=== PATIENT | female | born 1955 | race Caucasian/White ===

== ENCOUNTER 2016-01-23 12:22 | Inpatient (IN) | payer OTHER ==
[~2016-01-23] VITALS: Ht 165.1 cm; Wt 46.0 kg
[2016-01-23 12:34] VITALS: BP 126/68; PULSE 92; RESP 24; TEMP 98.6; O2SAT 97
--- NOTE | 2016-01-23 12:50 | PD ---
HPI Chief Complaint: Psychiatric Symptoms Time Seen by Provider: 12:43 Travel History International Travel<30 days: No Contact w/Intl Traveler<30days: No Traveled to known affect area: No History of Present Illness HPI Patient is a 60-year-old female with a history of Seattle's disease brought in by the [facility] on a Winkler [facility]. Per the report her son who also has Seattle' s called police because his mother has been expressing suicidal ideation lately. When they arrived the patient locked the doors and refused to let them in the sun and opened a back door and when they went in she was asking if euthanasia was legal in [place] and if the hospital would give her morphine so she could sleep and "go home to [facility] ". The patient denies any suicide attempts but states that she has been considering suicide or euthanasia as an option when her disease progresses. She is not in any pain and denies any cognitive decline. She denies a history of depression, anxiety, bipolar disorder and schizophrenia. She is a smoker but denies alcohol and illicit drug use. She denies any other medical problems including cardiac or pulmonary disease and has no medical complaints at this time. [facility] Social History Tobacco Use: Yes Allergies-Medications (Allergen,Severity, Reaction): Coded Allergies: No Known Allergies (Unverified , 01/23/16) Reported Meds & Prescriptions Reported Meds & Active Scripts Active Macrobid (Nitrofurantoin Monoh/Nitrofur Macro) 100 Mg Cap 100 Mg PO BID 5 Days Review of Systems Except as stated in HPI: all other systems reviewed are Neg Physical Exam Narrative GENERAL: Well-developed and well-nourished adult female in no acute distress. SKIN: Warm and dry. Good turgor without tenting. HEAD: Normocephalic and atraumatic. EYES: PERRL bilaterally, 5mm. EOMI bilateral. No injection or icterus present. No proptosis. Lids without edema or erythema. ENT: Buccal mucosa pink and moist. Oropharynx free of erythema, tonsillar hypertrophy, masses, swelling, asymmetry and exudates. Uvula midline and airway patent. NECK: Supple, no meningeal signs. Trachea midline, no JVD. No cervical or facial lymphadenopathy. CARDIOVASCULAR: Regular rate and rhythm without murmurs, rubs, clicks or gallops. Radial and posterior tibial pulses 2+ bilaterally. No pedal edema. RESPIRATORY: Clear to auscultation bilaterally with symmetrical rise and fall, no distress or use of accessory muscles. GASTROINTESTINAL: Nontender nondistended, no discoloration. No surgical scars present. Normal bowel sounds all 4 quadrants. No organomegaly. MUSCULOSKELETAL: Patient freely moving all four extremities spontaneously. Extremities without clubbing, cyanosis, or edema. No obvious deformities. NEUROLOGIC: CN II-XII grossly intact. Awake and alert and oriented. Chorea movements of the face, head, shoulders and hips. Discriminate gait. No dystonia. Slightly increased muscle tone without clonus. Bilateral sign present. Normal speech. PSYCHIATRIC: Appropriate mood and affect; insight and judgment normal. Data Data Last Documented VS Vital Signs Date Time Temp Pulse Resp B/P Pulse Ox O2 Delivery O2 Flow Rate FiO2 01/23/16 12:34 98.6 92 24 126/68 97 Orders Complete Blood Count With Diff (01/23/16 12:39) Comprehensive Metabolic Panel (01/23/16 12:39) Urinalysis - C+S If Indicated (01/23/16 12:39) Drug Screen, Random Urine (01/23/16 12:39) Alcohol (Ethanol) (01/23/16 12:39) Salicylates (Aspirin) (01/23/16 12:39) Tylenol (Acetaminophen) (01/23/16 12:39) Psych Screen (01/23/16 12:39) Urine Culture (01/23/16 12:53) Nitrofurantoin Monohyd Macrocr (Macrobid (01/23/16 13:45) Labs Laboratory Tests Test 01/23/16 01/23/16 12:46 12:53 White Blood Count 10.6 TH/MM3 Red Blood Count 4.58 MIL/MM3 Hemoglobin 14.2 GM/DL Hematocrit 42.0 % Mean Corpuscular Volume 91.6 FL Mean Corpuscular Hemoglobin 31.1 PG Mean Corpuscular Hemoglobin 33.9 % Concent Red Cell Distribution Width 13.7 % Platelet Count 393 TH/MM3 Mean Platelet Volume 7.1 FL Neutrophils (%) (Auto) 56.0 % Lymphocytes (%) (Auto) 30.9 % Monocytes (%) (Auto) 6.4 % Eosinophils (%) (Auto) 5.5 % Basophils (%) (Auto) 1.2 % Neutrophils # (Auto) 5.9 TH/MM3 Lymphocytes # (Auto) 3.3 TH/MM3 Monocytes # (Auto) 0.7 TH/MM3 Eosinophils # (Auto) 0.6 TH/MM3 Basophils # (Auto) 0.1 TH/MM3 CBC Comment DIFF FINAL Differential Comment Sodium Level 139 MEQ/L Potassium Level 4.0 MEQ/L Chloride Level 104 MEQ/L Carbon Dioxide Level 28.4 MEQ/L Anion Gap 7 MEQ/L Blood Urea Nitrogen 5 MG/DL Creatinine 0.67 MG/DL Estimat Glomerular Filtration 90 ML/MIN Rate Random Glucose 119 MG/DL Calcium Level 8.6 MG/DL Total Bilirubin 0.6 MG/DL Aspartate Amino Transf 21 U/L (AST/SGOT) Alanine Aminotransferase 35 U/L (ALT/SGPT) Alkaline Phosphatase 68 U/L Total Protein 7.0 GM/DL Albumin 3.8 GM/DL Salicylates Level 3.3 MG/DL Acetaminophen Level LESS THAN 2.0 MCG/ML Ethyl Alcohol Level LESS THAN 3 MG/DL Urine Color LIGHT-YELLOW Urine Turbidity HAZY Urine pH 6.5 Urine Specific Sigourney 1.006 Urine Protein NEG mg/dL Urine Glucose (UA) NEG mg/dL Urine Ketones NEG mg/dL Urine Occult Blood SMALL Urine Nitrite POS Urine Bilirubin NEG Urine Urobilinogen LESS THAN 2.0 MG/DL Urine Leukocyte Esterase LARGE Urine RBC 10 /hpf Urine WBC 177 /hpf Urine WBC Clumps FEW Urine Squamous Epithelial 4 /hpf Cells Urine Bacteria MANY /hpf Microscopic Urinalysis Comment CULTURE INDICATED Urine Opiates Screen NEG Urine Barbiturates Screen NEG Urine Amphetamines Screen NEG Urine Benzodiazepines Screen NEG Urine Cocaine Screen NEG Urine Cannabinoids Screen NEG MDM Medical Decision Making Medical Screen Exam Complete: Yes Emergency Medical Condition: Yes Interpretation(s) Laboratory Tests Test 01/23/16 01/23/16 12:46 12:53 White Blood Count 10.6 TH/MM3 (4.0-11.0) Red Blood Count 4.58 MIL/MM3 (4.00-5.30) Hemoglobin 14.2 GM/DL (11.6-15.3) Hematocrit 42.0 % (35.0-46.0) Mean Corpuscular Volume 91.6 FL (80.0-100.0) Mean Corpuscular Hemoglobin 31.1 PG (27.0-34.0) Mean Corpuscular Hemoglobin 33.9 % Concent (32.0-36.0) Red Cell Distribution Width 13.7 % (11.6-17.2) Platelet Count 393 TH/MM3 (150-450) Mean Platelet Volume 7.1 FL (7.0-11.0) Neutrophils (%) (Auto) 56.0 % (16.0-70.0) Lymphocytes (%) (Auto) 30.9 % (9.0-44.0) Monocytes (%) (Auto) 6.4 % (0.0-8.0) Eosinophils (%) (Auto) 5.5 % (0.0-4.0) Basophils (%) (Auto) 1.2 % (0.0-2.0) Neutrophils # (Auto) 5.9 TH/MM3 (1.8-7.7) Lymphocytes # (Auto) 3.3 TH/MM3 (1.0-4.8) Monocytes # (Auto) 0.7 TH/MM3 (0-0.9) Eosinophils # (Auto) 0.6 TH/MM3 (0-0.4) Basophils # (Auto) 0.1 TH/MM3 (0-0.2) CBC Comment DIFF FINAL Differential Comment Sodium Level 139 MEQ/L (136-145) Potassium Level 4.0 MEQ/L (3.5-5.1) Chloride Level 104 MEQ/L (98-107) Carbon Dioxide Level 28.4 MEQ/L (21.0-32.0) Anion Gap 7 MEQ/L (5-15) Blood Urea Nitrogen 5 MG/DL (7-18) Creatinine 0.67 MG/DL (0.50-1.00) Estimat Glomerular Filtration 90 ML/MIN (>89) Rate Random Glucose 119 MG/DL (74-106) Calcium Level 8.6 MG/DL (8.5-10.1) Total Bilirubin 0.6 MG/DL (0.2-1.0) Aspartate Amino Transf 21 U/L (15-37) (AST/SGOT) Alanine Aminotransferase 35 U/L (10-53) (ALT/SGPT) Alkaline Phosphatase 68 U/L (45-117) Total Protein 7.0 GM/DL (6.4-8.2) Albumin 3.8 GM/DL (3.4-5.0) Salicylates Level 3.3 MG/DL (2.8-20.0) Acetaminophen Level LESS THAN 2.0 MCG/ML (10.0-30.0) Ethyl Alcohol Level LESS THAN 3 MG/DL (0-5) Urine Color LIGHT-YELLOW (YELLW/STRAW) Urine Turbidity HAZY (CLEAR) Urine pH 6.5 (5.0-8.5) Urine Specific [place] 1.006 (1.002-1.035) Urine Protein NEG mg/dL (NEG-TRACE) Urine Glucose (UA) NEG mg/dL (NEG) Urine Ketones NEG mg/dL (NEG) Urine Occult Blood SMALL (NEG) Urine Nitrite POS (NEG) Urine Bilirubin NEG (NEG) Urine Urobilinogen LESS THAN 2.0 MG/DL (LESS THAN 2.0) Urine Leukocyte Esterase LARGE (NEG) Urine RBC 10 /hpf (0-3) Urine WBC 177 /hpf (0-5) Urine WBC Clumps FEW (NONE) Urine Squamous Epithelial 4 /hpf (0-5) Cells Urine Bacteria MANY /hpf (NONE) Microscopic Urinalysis Comment CULTURE INDICATED Urine Opiates Screen NEG (NEG) Urine Barbiturates Screen NEG (NEG) Urine Amphetamines Screen NEG (NEG) Urine Benzodiazepines Screen NEG (NEG) Urine Cocaine Screen NEG (NEG) Urine Cannabinoids Screen NEG (NEG) Differential Diagnosis SI versus depression versus anxiety versus bipolar disorder versus schizophrenia versus substance abuse versus mood disorder versus personality disorder versus adjustment disorder Narrative Course Patient is a 60-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 Patient admits to wanting to seek options for a euthanasia in the future as her diseases progressing and fatal. She denies any acute worsening and she is on any pain. She denies any history of mental illness. She denies any suicide attempts. She is pleasant and answers questions and denies any medical problems at this time. Denies any neurological findings from her Seattle's disease her exam is normal. Ordered labs per protocol. CBC shows a WBC of 10.6 without a neutrophilia or bands. H&H normal. Metabolic panel shows BUN 5, glucose 119. Serum benefit level less than 2, salicylates 3.3, ethanol less than 3. Urinalysis shows positive for nitrites, leukocyte esterase, 10 RBCs, 177 WBCs with clumps and many bacteria. The patient continues to deny any symptoms and her abdominal exam is benign. She is afebrile and nontoxic appearing. First dose of Macrobid given here with a prescription for the remainder. Heart rate when vitals were performed was 92 however on exam was 84 and regular. She has no leukocytosis, is afebrile and nontoxic-appearing and has no systemic complaints no additional workup is needed at this time. Patient is medically cleared to proceed with psych evaluation. 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
[2016-01-23 12:59] LABS: AUTOMATED NEUTROPHIL # 5.9 TH/MM3 (1.8-7.7); BASOPHIL # 0.1 TH/MM3 (0-0.2); BASOPHIL % 1.2 % (0.0-2.0); EOSINOPHIL # 0.6 TH/MM3 (0-0.4); EOSINOPHIL % 5.5 % (0.0-4.0); HEMO FLAGS DIFF FINAL; LYMPH % 30.9 % (9.0-44.0); LYMPHOCYTE # 3.3 TH/MM3 (1.0-4.8); MEAN CELL VOLUME 91.6 FL (80.0-100.0); MEAN CORPUSCULAR HEMOGLOBIN 31.1 PG (27.0-34.0); MEAN CORPUSCULAR HGB CONC 33.9 % (32.0-36.0); MONO % 6.4 % (0.0-8.0); PLATELET COUNT 393 TH/MM3 (150-450); RED BLOOD COUNT 4.58 MIL/MM3 (4.00-5.30); RED CELL DISTRIBUTION WIDTH 13.7 % (11.6-17.2); WHITE BLOOD COUNT 10.6 TH/MM3 (4.0-11.0)
[2016-01-23 13:12] LABS: BACTERIA, URINE MANY /hpf; BLOOD, URINE SMALL (NEG); COMMENT (UR) CULTURE INDICATED; CULTURE IF INDICATED CULTURE INDICATED; GLUCOSE,URINE NEG (NEG); KETONE, URINE NEG (NEG); PH, URINE 6.5 (5.0-8.5); SQUAMOUS EPITHELIAL CELL URINE 4 /hpf (0-5); URINE COLOR LIGHT-YELLOW (YELLW/STRAW)
[2016-01-23 13:14] LABS: NITRITE,URINE POS (NEG)
[2016-01-23 13:20] LABS: ANION GAP 7 MEQ/L (5-15); AST (GOT) 21 U/L (15-37); BICARBONATE 28.4 MEQ/L (21.0-32.0); BLOOD UREA NITROGEN 5 MG/DL (7-18); CHLORIDE 104 MEQ/L (98-107); GLOMERULAR FILTRATION RATE 90 ML/MIN (>89); SODIUM (NA) 139 MEQ/L (136-145)
[2016-01-23 13:23] LABS: ALKALINE PHOSPHATASE 68 U/L (45-117); ALT (GPT) 35 U/L (10-53); TOTAL BILIRUBIN ADULT 0.6 MG/DL (0.2-1.0)
[2016-01-23 13:24] LABS: ACETAMINOPHEN LESS THAN 2.0 MCG/ML (10.0-30.0)
[2016-01-23 13:29] LABS: AMPHETAMINE, URINE NEG (NEG); BARBITURATES, URINE NEG (NEG); COCAINE, URINE NEG (NEG)
[2016-01-23] MEDS ORDERED: MACR100C2 PO (13:33)
[2016-01-23] MEDS ORDERED: NITROFURANTOIN MONOHYD MACROCR 100 MG CAP PO ONE (13:45)
[2016-01-23 17:30] VITALS: BP 129/75; PULSE 77; RESP 18; TEMP 97.6; O2SAT 96
[2016-01-24 01:58] VITALS: BP 107/59; PULSE 89; RESP 16
[2016-01-24 06:19] VITALS: BP 115/69; PULSE 70
[2016-01-24] MEDS ORDERED: NITROFURANTOIN MONOHYD MACROCR 100 MG CAP PO ONE (10:15)
[2016-01-24] MEDS ORDERED: ALUMINUM/MAGNESIUM/SIMETH 30 ML CUP PO PRN (10:15)
[2016-01-24] MEDS ORDERED: LORazepam 0.5 MG TAB PO PRN (10:15)
[2016-01-24] MEDS ORDERED: ACETAMINOPHEN 325 MG TAB PO PRN (10:15)
[2016-01-24] MEDS ORDERED: MAGNESIUM HYDROXIDE SUSP 30 ML CUP PO PRN (10:15)
[2016-01-24] MEDS ORDERED: LORazepam 2 MG/ML VIAL IM PRN ×2 (10:15)
--- NOTE | 2016-01-24 10:30 | HHI.HP ---
Provisional Diagnosis Admission Date Republic I. Major depressive disorder, single episode, without psychotic features versus medical induced mood disorder Republic II. Deferred [place] III. Eugenie disease Republic IV. Family conflicts Republic V. 40 Certification of Person's Competence To Provide Express and Informed Consent I have personally examined Rosa Garica , a person being served at [facility] on, Jan 24, 2016 10:11. Express and informed consent means consent voluntarily given in writing, by a competent person, after sufficient explanation and disclosure of the subject matter involved to enable the person to make a knowing and willful decision without any element of force, fraud, deceit, duress, or other form of constraint or coercion. This person is 18 years of age or older, is not now known to be incompetent to consent to treatment with a guardian advocate, and does not have a health care surrogate or proxy currently making medical treatment decisions. I have found this person to be one of the following: [] Competent to provide express and informed consent, as defined above, for voluntary admission to this facility and is competent to provide express and informed consent for treatment. He/she has the consistent capacity to make well reasoned, willful, and knowing decisions concerning his or her medical or mental health treatment. The person fully and consistently understands the purpose of the admission for examination/placement and is fully capable of personally exercising all rights assured [place] [] Incompetent to provide express and informed consent to voluntary admission, and this is incompetent to provide express and informed consent to treatment. The person must be transferred to involuntary status and a petition for a guardian advocate filed with the Circuit Court. [X] Refusing to provide express and informed consent to voluntary admission but is competent to provide express and informed consent for treatment. The person must be discharged or transferred to involuntary status. Form shall be completed within 24 hours of a person's arrival at the receiving facility and filed in the clinical record of each person: 1. Admitted on a voluntary basis 2. Permitted to provide express and informed consent to his/her own treatment 3. Allowed to transfer from involuntary to voluntary status 4. Prior to permitting a person to consent to his or her own treatment after having been previously found incompetent to consent to treatment. History of Present Illness Capacity: Has Capacity HPI The patient is a 60-year-old woman, domicile with her son, unemployed , disabled, without any previous psychiatric history, no previous suicidal attempts, medical history of Jackson's disease [facility] on a Winkler act. Per the report her son who also has Jackson's called police because his mother has been expressing suicidal ideation lately. When they arrived the patient locked the doors and refused to let them in the sun and opened a back door and when they went in she was asking if euthanasia was legal in [place] and if the hospital would give her morphine so she could sleep and "go home to [facility] ". As per ER notes, The patient denies any suicide attempts but states that she has been considering suicide or euthanasia as an option when her disease progresses. Chart was reviewed, case discussed with ER medical staff, no collateral information available, patient was seen and evaluated in the [facility]. On evaluation patient states that she doesn't need to be here, she is states that the reason she was brought to the hospital is because her son doesn't want to pay the rent and wants to get rid of her. Patient denies depressive symptoms, she denies anhedonia, she denies hopelessness, helplessness, she denies suicidal or homicidal ideation. However , she does states that soon or later as per Jackson's disease is deteriorated her health she is going to look for options to end her life in a painless manner, but she is now planning to commit suicide. 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 Patient denies past or current austin, denies anxiety, denies perceptual disturbances, such as visual and auditory hallucinations. Patient is fully oriented 3, no gross cognitive impairment observed. Review of Systems Constitutional: DENIES: Diaphoretic episodes, Fatigue, Fever, Weight gain, Weight loss, Chills, Dizziness, Change in appetite, Night Sweats Eyes: DENIES: Blurred vision, Diplopia, Eye inflammation, Eye pain, Vision loss , Photosensitivity, Double Vision Ears, nose, mouth, throat: DENIES: Tinnitus, Hearing loss, Vertigo, Nasal discharge, Oral lesions, Throat pain, Hoarseness, Ear Pain, Running Nose, Epistaxis, Sinus Pain, Toothache, Odynophagia Respiratory: DENIES: Apneas, Cough, Snoring, Wheezing, Hemoptysis, Sputum production, Shortness of breath Cardiovascular: DENIES: Chest pain, Palpitations, Syncope, Dyspnea on Exertion , PND, Lower Extremity Edema, Orthopnea, Claudication Gastrointestinal: DENIES: Abdominal pain, Black stools, Bloody stools, Constipation, Diarrhea, Nausea, Vomiting, Difficulty Swallowing, Anorexia Genitourinary: DENIES: Abnormal vaginal bleeding, Dysmenorrhea, Dyspareunia, Sexual dysfunction, Urinary frequency, Urinary incontinence, Urgency, Hematuria , Dysuria, Nocturia, Vaginal discharge Musculoskeletal: DENIES: Joint pain, Muscle aches, Stiffness, Joint Swelling, Back pain, Neck pain Integumentary: DENIES: Abnormal pigmentation, Pruritus, Rash, Nail changes, Breast masses, Breast skin changes, Nipple discharge Immunologic/allergic: DENIES: Eczema, Urticaria Psychiatric: DENIES: Anxiety, Confusion, Mood changes, Depression, Hallucinations, Agitation, Suicidal Ideation, Homicidal Ideation, Delusions Other Neurology: Jackson chorea observed, with involuntary movement, lack of coordination and unsteady gait observed. Past Psych History Violence risk - self (6 mos) Elevated Substance Abuse History Drugs/Alcohol past 12 months She denies Past Family Social History Coded Allergies: No Known Allergies (Unverified , 01/23/16) Active Scripts Nitrofurantoin Monohydrate Macrocrystals (Macrobid)100 Mg [id number] Mg PO BID 5 Days Ref 0 Prov:Kaley Dunne MD 01/23/16 Current Medications Medications (Trade) Dose Ordered Sig/Cecelia Route Start Time Stop Time Status Last Admin (Macrobid) 100 mg ONCE ONCE PO 01/24/16 10:15 01/24/16 10:16 (Ativan) 1 mg Q6H PRN PO 01/24/16 10:15 UNV (Ativan Inj) 1 mg Q6H PRN IM 01/24/16 10:15 UNV (Ativan) 0.5 mg Q12H PRN PO 01/24/16 10:15 UNV (Ativan Inj) 0.5 mg Q12H PRN IM 01/24/16 10:15 UNV (Tylenol) 650 mg Q4H PRN PO 01/24/16 10:15 UNV (Milk Of Magnesia Liq) 30 ml DAILY PRN PO 01/24/16 10:15 UNV (Mag-Al Plus Susp Liq) 30 ml Q6H PRN PO 01/24/16 10:15 UNV (Habitrol 21 Mg Patch.24 Hr) 1 patch DAILY T-DERMAL 01/25/16 09:00 UNV Family History Her father, 2 of her siblings, her 2 kids have Eugenie disease Social History Patient was born and raised in [place], she lives with her son, she is single , unemployed, has been living in [place] for 8 years Physical Exam Vital Signs Vital Signs Date Time Temp Pulse Resp B/P Pulse Ox O2 Delivery O2 Flow Rate FiO2 01/24/16 06:19 70 115/69 01/24/16 01:58 16 01/23/16 17:30 97.6 96 Room Air Mental Status Examination Appearance woman, skinny, who appears her stated age, she is cooperative, a little bit irritable, uncoordinated movement, chorea, unsteady gait observed Speech: Slow, Stuttering Orientation: x3 Memory: Unremarkable Thought Process: Logical Thought Content: Unremarkable Hallucination Type: None Attention and Concentration: Good Suicidal Ideation: No Previous Suicide Attempts: No Homicidal Ideation: No Previous Homicide Attempts: No Insight: Fair Judgement: WNL Affect: Irritable Mood: Angry Motor Activity: Abnormal gait-specify (unsteady gait) Problem List: (1) Major depressive disorder Assessment & Plan: On evaluation patient is irritable, she denies suicidal ideation, she denies depressive symptoms, denies austin and perceptual disturbances. However, Winkler act documentation shows that her kids has been very concerned because patient has been expressing suicidal ideation. On evaluation today, even though she doesn't express suicidal ideation, she does report the desire of ending her life "in a painless manner"as her physical condition is deteriorating due to Jackson disease. On the evaluation no gross cognitive impairment or gabriela psychosis is observed. Neuropsychiatric symptoms are very well-known consequences of Jackson disease, but this does not seem to be the case in this patient. I think that the patient has an existential SI due to her severe and debilitating medical condition and not due specifically to depression. She poses a very high risk for suicidality. Collateral information from her kids and more longitudinal observation is crucial in order to complete the psychiatric assessment and and completed the picture. Meanwhile, due to her elevated risk for suicidality, patient needs psychiatric admission. ICD Code: F32.9 Assessment & Plan Estimated LOS: days Problem Qualifiers (1) Major depressive disorder: Ed Pena MD Jan 24, 2016 10:30
[2016-01-24 11:30] VITALS: BP 117/91; PULSE 84; RESP 20; TEMP 96.7
[2016-01-24 18:54] VITALS: BP 123/73; PULSE 72; RESP 18; TEMP 98.4; O2SAT 99
[2016-01-24] MEDS ORDERED: QUEtiapine FUMARATE 25 MG TAB PO SCH (21:00)
[2016-01-25 05:47] VITALS: BP 103/63; PULSE 64; RESP 16; TEMP 98.4; O2SAT 97
[2016-01-25] MEDS: NICOTINE 21 MG/24 HR PATCH T-DERMAL SCH (09:00)
[2016-01-25] MEDS: QUEtiapine FUMARATE 25 MG TAB PO SCH ×2 (09:46→13:26)
[2016-01-25 10:01] LABS: HEMOGLOBIN A1a 1.1 %; HEMOGLOBIN A1b 1.3 %; HEMOGLOBIN Ao 86.5 %; HEMOGLOBIN LA1C 1.9 %; HEMOGLOBIN P3 3.4 %
[2016-01-25 10:11] LABS: ANION GAP 10 MEQ/L (5-15); BICARBONATE 28.6 MEQ/L (21.0-32.0); BLOOD UREA NITROGEN 9 MG/DL (7-18); CHLORIDE 98 MEQ/L (98-107); GLOMERULAR FILTRATION RATE 73 ML/MIN (>89); HDL CHOLESTEROL 90.9 MG/DL (40.0-60.0); LDL CHOLESTEROL 80 MG/DL (0-99); POTASSIUM 3.8 MEQ/L (3.5-5.1); SODIUM (NA) 137 MEQ/L (136-145)
--- NOTE | 2016-01-25 11:11 | PD.CONS ---
Provisional Diagnosis Admission Date Jan 24, 2016 at 10:11 [place] I. Major depressive disorder, single episode, without psychotic features versus medical induced mood disorder [place] II. Deferred [place] III. Aspermont disease [place] IV. Family conflicts [place] V. 40 History of Present Illness Service Psychiatry Consult Requested By Primary Care Physician No Primary Care Physician HPI The patient is a 60-year-old woman, domicile with her son, unemployed , disabled, without any previous psychiatric history, no previous suicidal attempts, medical history of Eugenie's disease brought [facility] by [facility] on a Winkler act. Per the report her son who also has Aspermont's called police because his mother has been expressing suicidal ideation lately. When they arrived the patient locked the doors and refused to let them in the sun and opened a back door and when they went in she was asking if euthanasia was legal in [place] and if the hospital would give her morphine so she could sleep and "go home to [facility] ". As per ER notes, The patient denies any suicide attempts but states that she has been considering suicide or euthanasia as an option when her disease progresses. Chart was reviewed, case discussed with ER medical staff, no collateral information available, patient was seen and evaluated in the [facility]. On evaluation patient states that she doesn't need to be here, she is states that the reason she was brought to the hospital is because her son doesn't want to pay the rent and wants to get rid of her. Patient denies depressive symptoms, she denies anhedonia, she denies hopelessness, helplessness, she denies suicidal or homicidal ideation. However , she does states that soon or later as per Aspermont's disease is deteriorated her health she is going to look for options to end her life in a painless manner, but she is now planning to commit suicide. 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 Patient denies past or current [place], denies anxiety, denies perceptual disturbances, such as visual and auditory hallucinations. Patient is fully oriented 3, no gross cognitive impairment observed. 01/25/16 Above note dictated by Dr. Calderon review noted and agreed with. 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 Calderon to Dr. vera nurse service. Patient chart reviewed and patient seen with nurse eye on unit. Dr. ogden his sign first opinion petition supporting Winkler act. I agree. Patient meets criteria for involuntary psychiatric hospitalization under the Winkler act thus I will cosign second opinion petition supporting Winkler act Past Family Social History Coded Allergies: No Known Allergies (Unverified , 01/23/16) Active Scripts Nitrofurantoin Monohydrate Macrocrystals (Macrobid)100 Mg [id number] Mg PO BID 5 Days Ref 0 Prov:Kaley Dunne MD 01/23/16 Current Medications Medications (Trade) Dose Ordered Sig/Cecelia Route Start Time Stop Time Status Last Admin (Ativan) 1 mg Q6H PRN PO 01/24/16 10:15 (Ativan Inj) 1 mg Q6H PRN IM 01/24/16 10:15 (Ativan) 0.5 mg Q12H PRN PO 01/24/16 10:15 (Ativan Inj) 0.5 mg Q12H PRN IM 01/24/16 10:15 (Tylenol) 650 mg Q4H PRN PO 01/24/16 10:15 (Milk Of Magnesia Liq) 30 ml DAILY PRN PO 01/24/16 10:15 (Mag-Al Plus Susp Liq) 30 ml Q6H PRN PO 01/24/16 10:15 (Habitrol 21 Mg Patch.24 Hr) 1 patch DAILY T-DERMAL 01/25/16 09:00 01/25/16 09:00 (SEROquel) 25 mg BID@09,12 PO 01/25/16 09:00 01/25/16 09:46 (SEROquel) 100 mg HS PO 01/25/16 21:00 Physical Exam Vital Signs Vital Signs Date Time Temp Pulse Resp B/P Pulse Ox O2 Delivery O2 Flow Rate FiO2 01/25/16 05:47 98.4 64 16 103/63 97 01/23/16 17:30 Room Air Mental Status Examination Alert irritable paranoid thin slender white female with significant chorea type movements both upper extremities upper torso head and neck guarded with me Appearance Somewhat disheveled obvious Aspermont's chorea type movements noted Speech: Slow, Stuttering Orientation: x3 Memory: Unremarkable Thought Process: Logical Thought Content: Unremarkable Language Fair Fund of Knowledge Fair Hallucination Type: None Attention and Concentration: Good Suicidal Ideation: No (denies at this time) Previous Suicide Attempts: No Homicidal Ideation: No Previous Homicide Attempts: No Insight: Poor Judgement: WNL (fair) Affect: Irritable Mood: Angry Motor Activity: Abnormal gait-specify (unsteady gait) Problem List: (1) Major depressive disorder ICD Code: F32.9 Assessment & Plan Estimated LOS: days Problem Qualifiers (1) Major depressive disorder: Leonel Monroy MD Jan 25, 2016 11:11
--- NOTE | 2016-01-25 16:42 | HHI.PYPN ---
Subjective Remarks Patient seen, chart reviewed, case discussed with staff Patient is taking her Seroquel today. She reports she finds it calming and she reports she likes it and will continue to take it. Patient presently is continuing to talk to me about suicidal thoughts. She is talking about ordering poisonous herbs from the Internet after she is discharged ; for example she mentioned catnip and dandelion roots which she believes she can order online. This train of thought, which she is continuing in even when she reports feeling better today, is worrisome. Daughter called and gave report of mom being aggressive and overwhelmed at home. Daughter feels mom would do better if placed in assisted living. Mom also reports she does not feel she should return to the family home. Patient continues to deny depression, Says she wants to kill herself as part of a desire to move on in a positive fashion. Review of Systems Neurologic: COMPLAINS OF: Tremor Psychiatric: COMPLAINS OF: Anxiety, Confusion, Mood changes, Depression, Suicidal Ideation Other otherwise 10 point ROS is negative Objective Alert: Yes [place]: Person, Place, Situation Mood: Agitated, Anxious, Depressed Affect: Labile Memory Intact: Immediate Hallucinations: Other (patient denies) Delusions: Yes Delusion Type: Other Suicidal: Ideation (prominent wishes) Homicidal: Ideation (denies) Insight/Judgement odd views about and dying Labs Test 01/25/16 08:41 Sodium Level 137 MEQ/L Potassium Level 3.8 MEQ/L Chloride Level 98 MEQ/L Carbon Dioxide Level 28.6 MEQ/L Anion Gap 10 MEQ/L Blood Urea Nitrogen 9 MG/DL Creatinine 0.81 MG/DL Estimat Glomerular Filtration 73 ML/MIN Rate Random Glucose 129 MG/DL Hemoglobin A1c 5.1 % Calcium Level 9.2 MG/DL Triglycerides Level 113 MG/DL Cholesterol Level 193 MG/DL LDL Cholesterol 80 MG/DL HDL Cholesterol 90.9 MG/DL Cholesterol/HDL Ratio 2.12 RATIO Date/Time Procedure Status Source Growth 01/23/16 12:53 Urine Culture - Final Complete Urine Clean Catch Escherichia Coli Vitals/IOs Vital Signs Date Time Temp Pulse Resp B/P Pulse Ox O2 Delivery O2 Flow Rate FiO2 01/25/16 05:47 98.4 64 16 103/63 97 01/23/16 17:30 Room Air Problem List: (1) Major depressive disorder, recurrent, severe with psychotic features Assessment & Plan: I believe this patients strong wish is a strong indication of severe hopelessness and I consider this a psychotic feature. In addition I consider her thoughts about dying odd and fundamentally psychotic. I believe neuroleptic treatment is indicated and I am happy to say she feels Seroquel is relieving what she refers to as her anxiety. We will continue with this and raise this as needed. Augmenting with antidepressants as patient improves and becomes more accepting of medications. ICD Code: F33.3 Assessment & Plan Estimated LOS: Philly Holliday MD Jan 25, 2016 16:42
[2016-01-25 20:16] VITALS: BP 108/75; PULSE 88; RESP 16; TEMP 97.6; O2SAT 98
[2016-01-25] MEDS: QUEtiapine FUMARATE 100 MG TAB PO SCH (20:45)
[2016-01-25] MEDS: LORazepam 1 MG TAB PO PRN (22:16)
[2016-01-26 06:11] VITALS: BP 91/74; PULSE 72; RESP 18; TEMP 97.2; O2SAT 96
[2016-01-26] MEDS: NICOTINE 21 MG/24 HR PATCH T-DERMAL SCH (09:00)
[2016-01-26] MEDS: QUEtiapine FUMARATE 25 MG TAB PO SCH ×2 (09:18→12:11)
--- NOTE | 2016-01-26 14:45 | HHI.PYPN ---
Subjective Remarks Patient seen, chart reviewed, case discussed with staff Patient reports she is much better on the Seroqeul. She is also reporting that her daughter wants her back home to live with her, however the phone number she gave me is a non working number. Furthermore, when I said that social work would have to speak to her daughter and make sure it is a safe discharge she suddenly got violently angry and started talking about killing herself again.. Suggesting problematic lability and a worrisome low frustration tolerance. Patient has been isolating in bed much of the day. Does not complain of medication side effects. Review of Systems Psychiatric: COMPLAINS OF: Anxiety, Confusion, Mood changes, Depression, Agitation, Suicidal Ideation Other otherwise 10 point ROS is negative Objective Alert: Yes [place]: Person, Place, Situation Mood: Agitated, Anxious, Depressed Affect: Labile Memory Intact: Immediate Hallucinations: Other (patient denies) Delusions: Yes Delusion Type: Other Suicidal: Ideation (continues) Homicidal: Ideation (denies) Insight/Judgement poor Labs Date/Time Procedure Status Source Growth 01/23/16 12:53 Urine Culture - Final Complete Urine Clean Catch Escherichia Coli Vitals/IOs Vital Signs Date Time Temp Pulse Resp B/P Pulse Ox O2 Delivery O2 Flow Rate FiO2 01/26/16 06:11 97.2 72 18 91/74 96 01/23/16 17:30 Room Air Problem List: (1) Major depressive disorder, recurrent, severe with psychotic features Assessment & Plan: patient is still very unstable. I have not spoken to her daughter to verify that Rosa does have a place to go home to. Will have social work look into this. There is improvement with the Seroquel, however the patient is not yet stable yet. Will attempt to improve stability, however I am concerned that patient is sleep on Seroquel (ie staying in room in bed) and will wait to increase, and or consider other meds in daytime. ICD Code: F33.3 Assessment & Plan Estimated LOS: Philly Cardenas MD Jan 26, 2016 14:45
[2016-01-26 19:43] VITALS: BP 108/67; PULSE 84; RESP 17; TEMP 97.1; O2SAT 97
[2016-01-26] MEDS: QUEtiapine FUMARATE 100 MG TAB PO SCH (21:35)
[2016-01-27] MEDS: LORazepam 1 MG TAB PO PRN ×2 (02:14→20:39)
[2016-01-27 05:57] VITALS: BP 104/64; PULSE 71; RESP 20; TEMP 97.3; O2SAT 100
[2016-01-27] MEDS: QUEtiapine FUMARATE 25 MG TAB PO SCH ×2 (09:00→11:55)
[2016-01-27] MEDS: NICOTINE 21 MG/24 HR PATCH T-DERMAL SCH (09:00)
--- NOTE | 2016-01-27 14:24 | HHI.PYPN ---
Subjective Remarks Patient seen, chart reviewed, case discussed with staff. Patient seen on both 2600 and 2700 today. Patient has been demanding immediate release, but has given me a phone number which she reports is that of her daughter and which no one answers. In addition she continues to threaten to kill herself if things do not go her way. Patient was trying to escape the Unit. She is psychotic and talking about legal examiner and people who want her to come live with them. Review of Systems Neurologic: COMPLAINS OF: Tremor, Poor Balance Psychiatric: COMPLAINS OF: Anxiety, Confusion, Mood changes, Depression, Agitation, Suicidal Ideation, Delusions Other otherwise 10 point ROS is negative Objective Alert: Yes [place]: Person, Place, Situation Mood: Agitated, Anxious, Depressed Affect: Labile Memory Intact: Immediate Hallucinations: Other (patient denies) Delusions: Yes Delusion Type: Other Suicidal: Ideation (continues) Homicidal: Ideation (denies) Insight/Judgement poor Labs Date/Time Procedure Status Source Growth 01/23/16 12:53 Urine Culture - Final Complete Urine Clean Catch Escherichia Coli Vitals/IOs Vital Signs Date Time Temp Pulse Resp B/P Pulse Ox O2 Delivery O2 Flow Rate FiO2 01/27/16 05:57 97.3 71 20 104/64 100 01/23/16 17:30 Room Air Problem List: (1) Major depressive disorder, recurrent, severe with psychotic features Assessment & Plan: The patient is expressing more psychotic feature than were originally noticed. In addition she is now refusing medication and insisting on leaving the hospital. It appears likely that she needs to have a Guardian Advocate appointed to approve medications, and she may need some ETOs if her behavioral dyscontrol continues. She has been transferred to the 2700 Unit so she can be observed in the Camera rooms. ICD Code: F33.3 Assessment & Plan Estimated LOS: Philly Holliday MD Jan 27, 2016 14:24
[2016-01-27] MEDS: QUEtiapine FUMARATE 100 MG TAB PO SCH (20:35)
[2016-01-28 06:06] VITALS: BP 115/78; PULSE 63; RESP 16; TEMP 97.2; O2SAT 98
[2016-01-28] MEDS: QUEtiapine FUMARATE 25 MG TAB PO SCH ×2 (08:52→11:33)
[2016-01-28] MEDS: NICOTINE 21 MG/24 HR PATCH T-DERMAL SCH (08:52)
--- NOTE | 2016-01-28 09:36 | HHI.PYPN ---
Subjective Remarks I am assuming care of patient from Dr. Holliday. Patient seen and examined with counselor Fatoumata. Chart reviewed. Case discussed with nursing staff. Patient was apparently transferred from the 2600 to the 2700 unit because she became agitated and threw food at staff. Behavior has been under better control since transferred to the 2700 unit. On my examination today, the patient presents as intensely dysphoric and paranoid. She is impulsive with and seems to exhibit impaired executive function. She says "I don't need to be here. I plan to get the claim inspector of this place involved. You're forcing me onto drugs. I'll place is going to be closed down, sweetie. You stole me from my home. Get a heart. Get a heart. Florina Esquivel." She says she wants to be discharged, and she will go home and "let go" of her life. She says the Seroquel, "turns me into la -la," and I note she has stopped taking it. Spoke with patient's son, Landon Hyman, over the phone [phone]: He reports pt has been symptomatic from HD for 5-10 years but has been steadily declining in the last 2-3 years. He notes that she has had "phases" of paranoia and aggressive behavior in the past. She thought her water was poisoned at one point and refused to shower, he says. He notes that she has made prior threats of suicide but has never acted on a suicide plan. He notes she often refuses medications and does not like doctors or hospitals. He needs to talk it over with his sister, but he is thinking pt may need placement. He is eldest child and pt is reportedly unmarried, and he agrees to act as HCS/GA. He thanks me for the call. Also tried to call daughter, Georgia Hyman at [phone], no answer. Review of Systems ROS Limitations: Uncooperative, Poor Historian Other No reported somatic complaints. Objective Alert: Yes [place]: Person, Place Mood: Agitated, Angry, Anxious Affect: Restricted (dysphoric) Memory Intact: Comment (Perhaps mild impairment on clinical exam but not formally assessed.) Hallucinations: Other (No AVH) Delusions: Yes Delusion Type: Paranoid Suicidal: Ideation (Ongoing SI) Homicidal: Ideation (No HI) Insight/Judgement Poor Remarks Chorea evident. Speech wnl for rate, tone, volume. Thought process perseverative. Labs Date/Time Procedure Status Source Growth 01/23/16 12:53 Urine Culture - Final Complete Urine Clean Catch Escherichia Coli Labs reviewed. CBC, CMP, and toxicology results reviewed. UA and culture results reviewed. I note patient has not been continued on Macrobid tx for UTI. 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 There may also be a component of affective disorder, but this is perhaps secondary to the HD as well. I will replace her Seroquel with Zyprexa PO/IM given nonadherence with Seroquel. I will consult PT and initiate fall precautions. Consult to neurology to assess status of patient's HD. Resume Macrobid x 7 days for treatment of allison-sensitive E. coli UTI. Transfer to 2500 unit when a bed is available; d/w Dr. Monroy. Utilize [facility]. Continue other medications and care as ordered. 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
[2016-01-28] MEDS ORDERED: OLANZapine IM 10 MG VIAL IM PRN (11:45)
[2016-01-28] MEDS: NITROFURANTOIN MONOHYD MACROCR 100 MG CAP PO SCH ×3 (12:22→17:11)
[2016-01-28 20:22] VITALS: BP 92/52; PULSE 93; RESP 18; TEMP 97.4; O2SAT 95
[2016-01-28] MEDS ORDERED: OLANZapine ODT 5 MG TAB PO SCH (21:00)
--- NOTE | 2016-01-28 23:45 | MB ---
cc: JOE TAN DATE OF CONSULTATION 01/28/2016 REASON FOR CONSULTATION Patient with history of Doña Ana disease and the question is any medications that may be of benefit and the admitting marine consultant wants to inquire whether the patient has a cortical dementia of Doña Ana's disease. HISTORY OF PRESENT ILLNESS I went to see the patient in the Psychiatry Unit. I met with the patient and she was in the lobby and she was asked by the nurse to go back to her room. She was evidently with choreiform movements involving the whole body. However, the patient denied that she needs to see a neurologist, "I do not want to see a neurologist. I know my diagnosis and all my family from my mother's side had been diagnosed with Doña Ana's." I explained to the patient why I am consulted and why I am seeing her. She declined taking any medication and she did not want to be examined and she refused evaluation and assessment. I let the nurse know about the situation and the nurse wanted to know about the capacity of the patient to make decisions. My answer is that this needs further evaluation through mental status assessment and cooperative test that is usually done in an outpatient setting and also can be done in inpatient setting by a neurobehavioral expert. I informed the nurse that of further assistance is needed and the patient is agreeable to being reevaluated, I would be more happy to see her again. MD HANNAH Melara/YANIRA /10:52 PM /11:39 PM JENNY
[2016-01-29] MEDS: NITROFURANTOIN MONOHYD MACROCR 100 MG CAP PO SCH ×2 (09:00→17:19)
[2016-01-29] MEDS: REMOVE OLD NICODERM (NICOTINE) PATCH TD SCH (09:00)
[2016-01-29] MEDS: NICOTINE 21 MG/24 HR PATCH T-DERMAL SCH (09:00)
--- NOTE | 2016-01-29 21:17 | HHI.PYPN ---
Subjective Remarks Pt seen and discussed with staff. She has been agitated and aggressive with staff.. She received Ativan IM x1 due to aggression. She states that the FBI is waiting upstairs to arrest support staff. Interview cut short due to escalating agitation. No SI/HI. Review of Systems Psychiatric: COMPLAINS OF: Agitation, Delusions Objective Alert: Yes [place]: Person, Place Mood: Agitated, Angry, Anxious Affect: Restricted (dysphoric) Memory Intact: Comment (Perhaps mild impairment on clinical exam but not formally assessed.) Hallucinations: Other (No AVH) Delusions: Yes Delusion Type: Paranoid Suicidal: Ideation (Ongoing SI) Homicidal: Ideation (No HI) Insight/Judgement poor Vitals/IOs Vital Signs Date Time Temp Pulse Resp B/P Pulse Ox O2 Delivery O2 Flow Rate FiO2 01/28/16 20:22 97.4 93 18 92/52 95 Intake and Output 01/28/16 01/28/16 01/29/16 08:00 16:00 00:00 Intake Total 1080 ml Balance 1080 ml Problem List: (1) Eugenie disease ICD Code: G10 (2) Dementia ICD Code: F03.90 Assessment & Plan Continue current tx plan. Estimated LOS: days Request HC Surrog/Guard Advoc?: Yes Problem Qualifiers (1) Dementia: Qualified Code: F02.81 - Dementia associated with other underlying disease with behavioral disturbance Angela Chiu MD Jan 29, 2016 21:17
[2016-01-30] MEDS: REMOVE OLD NICODERM (NICOTINE) PATCH TD SCH (09:00)
[2016-01-30] MEDS: NICOTINE 21 MG/24 HR PATCH T-DERMAL SCH (09:00)
[2016-01-30] MEDS: NITROFURANTOIN MONOHYD MACROCR 100 MG CAP PO SCH ×2 (09:00→18:00)
[2016-01-30 19:31] VITALS: BP 137/57; PULSE 80; RESP 17; TEMP 98.1; O2SAT 97
--- NOTE | 2016-01-30 19:38 | HHI.PYPN ---
Subjective Remarks Pt seen and discussed with staff. She continues to refuse medications but has been less agitated and hostile. Today pt has been out of room in dayroom engaging in unit activities at times. No SI/HI Objective Alert: Yes [place]: Person, Place Mood: Anxious Affect: Labile Memory Intact: Comment (mild impairment) Hallucinations: Other (No AVH) Delusions: Yes Delusion Type: Paranoid Suicidal: Ideation (Ongoing SI) Homicidal: Ideation (No HI) Insight/Judgement poor Vitals/IOs Vital Signs Date Time Temp Pulse Resp B/P Pulse Ox O2 Delivery O2 Flow Rate FiO2 01/30/16 19:31 98.1 80 17 137/57 97 Intake and Output 01/29/16 01/29/16 01/30/16 08:00 16:00 00:00 Intake Total 980 ml 720 ml 360 ml Balance 980 ml 720 ml 360 ml Problem List: (1) [place] disease ICD Code: G10 (2) Dementia ICD Code: F03.90 Assessment & Plan Continue current tx plan. Estimated LOS: days Request HC Surrog/Guard Advoc?: Yes Problem Qualifiers (1) Dementia: Qualified Code: F02.81 - Dementia associated with other underlying disease with behavioral disturbance Angela Chiu MD Jan 30, 2016 19:38
[2016-01-31] MEDS: REMOVE OLD NICODERM (NICOTINE) PATCH TD SCH (09:00)
[2016-01-31] MEDS: NICOTINE 21 MG/24 HR PATCH T-DERMAL SCH (09:11)
[2016-01-31] MEDS: NITROFURANTOIN MONOHYD MACROCR 100 MG CAP PO SCH ×2 (09:11→17:22)
--- NOTE | 2016-01-31 15:06 | HHI.PYPN ---
Subjective Remarks Patient check to my care on unit 2500, patient discussed with treatment team today chart review today patient seen on unit. Patient quite angry and paranoid after anxious myself she stormed off saying I don't need a doctor. Will have counselor talk with patient's family about possible use of Zyprexa by mouth or IM Review of Systems Other No somatic complaints noted today Objective Alert: Yes [place]: Person, Place Mood: Anxious Affect: Labile Memory Intact: Comment (mild impairment) Hallucinations: Other (No AVH) Delusions: Yes Delusion Type: Paranoid Suicidal: Ideation (Ongoing SI) Homicidal: Ideation (No HI) Insight/Judgement Very poor Vitals/IOs Vital Signs Date Time Temp Pulse Resp B/P Pulse Ox O2 Delivery O2 Flow Rate FiO2 01/30/16 19:31 98.1 80 17 137/57 97 Intake and Output 01/30/16 01/30/16 01/30/16 07:59 15:59 23:59 Intake Total 0 ml 1440 ml 480 ml Balance 0 ml 1440 ml 480 ml Assessment & Plan Problem List: (1) [place] disease ICD Code: G10 (2) Dementia ICD Code: F03.90 Assessment & Plan Estimated LOS: days patient continues quite paranoid and confused. Will attempt to get permission from family to initiate Zyprexa Discharge Planning To be determined Request HC Surrog/Guard Advoc?: Yes Problem Qualifiers (1) Dementia: Qualified Code: F02.81 - Dementia associated with other underlying disease with behavioral disturbance Leonel Monroy MD Jan 31, 2016 15:06
[2016-01-31 18:37] VITALS: PULSE 76; RESP 18; TEMP 99; O2SAT 97
[2016-01-31] MEDS: OLANZapine ODT 5 MG TAB PO SCH (20:32)
[2016-02-01 06:37] VITALS: BP 100/65; PULSE 60; RESP 18; TEMP 98; O2SAT 99
[2016-02-01] MEDS: NICOTINE 21 MG/24 HR PATCH T-DERMAL SCH (08:49)
[2016-02-01] MEDS: REMOVE OLD NICODERM (NICOTINE) PATCH TD SCH (08:49)
[2016-02-01] MEDS: NITROFURANTOIN MONOHYD MACROCR 100 MG CAP PO SCH ×2 (08:50→17:37)
--- NOTE | 2016-02-01 10:04 | HHI.PYPN ---
Subjective Remarks Attempted to speak with patient in dayroom today she continues angry paranoid refusing to speak with me. Patient remains [place] noncompliant with medications though it appears she did take her Zyprexa at at bedtime last night. For now continue treatment Review of Systems Other No somatic complaints today Objective Alert: Yes [place]: Person, Place Mood: Anxious Affect: Labile Memory Intact: Comment (mild impairment) Hallucinations: Other (No AVH) Delusions: Yes Delusion Type: Paranoid Suicidal: Ideation (Ongoing SI) Homicidal: Ideation (No HI) Insight/Judgement Very poor Vitals/IOs Vital Signs Date Time Temp Pulse Resp B/P Pulse Ox O2 Delivery O2 Flow Rate FiO2 02/01/16 06:37 98.0 60 18 100/65 99 Intake and Output 01/31/16 01/31/16 01/31/16 07:59 15:59 23:59 Intake Total 240 ml 360 ml 580 ml Balance 240 ml 360 ml 580 ml Assessment & Plan Problem List: (1) [place] disease ICD Code: G10 (2) Dementia ICD Code: F03.90 Assessment & Plan Patient continues somewhat confused, psychotic, paranoid, angry and irritable Estimated LOS: days Discharge Planning To be determined Request HC Surrog/Guard Advoc?: Yes Problem Qualifiers (1) Dementia: Qualified Code: F02.81 - Dementia associated with other underlying disease with behavioral disturbance Leonel Monroy MD Feb 01, 2016 10:04
[2016-02-01 20:03] VITALS: BP 114/72; PULSE 75; RESP 18; TEMP 97.8; O2SAT 97
[2016-02-01] MEDS: OLANZapine IM 10 MG VIAL IM PRN (20:26)
[2016-02-01] MEDS: OLANZapine ODT 5 MG TAB PO SCH (21:06)
[2016-02-02] MEDS: REMOVE OLD NICODERM (NICOTINE) PATCH TD SCH (09:00)
[2016-02-02] MEDS: NICOTINE 21 MG/24 HR PATCH T-DERMAL SCH (09:00)
[2016-02-02] MEDS: NITROFURANTOIN MONOHYD MACROCR 100 MG CAP PO SCH ×2 (09:00→18:01)
--- NOTE | 2016-02-02 14:17 | HHI.PYPN ---
Subjective Remarks Patient was seen and reevaluated today in the psychiatric li at bedside, she was calm and cooperative, choreiform movement and restlessness observed, she endorses good mood, says that she is not upset for the hospitalization, she is mostly upset with her kids because they don't believe her. Patient is oriented times person and place. She denies suicidal or homicidal ideation. Review of Systems Other No somatic complaints this moment Objective Alert: Yes [place]: Person, Place, Date Mood: Calm Affect: Euthymic Memory Intact: Comment (mild impairment) Hallucinations: Other (No AVH) Delusions: Yes Delusion Type: Other Suicidal: Ideation (she denies suicidal ideation) Homicidal: Ideation (No HI) Insight/Judgement fair Vitals/IOs Vital Signs Date Time Temp Pulse Resp B/P Pulse Ox O2 Delivery O2 Flow Rate FiO2 02/01/16 20:03 97.8 75 18 114/72 97 Intake and Output 02/01/16 02/01/16 02/02/16 08:00 16:00 00:00 Intake Total 0 ml 600 ml 240 ml Balance 0 ml 600 ml 240 ml Assessment & Plan Problem List: (1) Eugenie disease ICD Code: G10 (2) Dementia Assessment & Plan: On reevaluation today the patient does not present any visible depression, anxiety, [place] or perceptual disturbances. She denies suicidal or homicidal ideation. Patient will continue process of psychiatry hospitalization in order to continue coordinating a safe discharge. No changes in psychotropics. ICD Code: F03.90 Assessment & Plan Estimated LOS: days Request HC Surrog/Guard Advoc?: Yes Problem Qualifiers (1) Dementia: Qualified Code: F02.81 - Dementia associated with other underlying disease with behavioral disturbance Ed Pena MD Feb 02, 2016 14:17
[2016-02-02 19:29] VITALS: BP 98/66; PULSE 73; RESP 18; TEMP 98.5
[2016-02-02] MEDS: OLANZapine ODT 5 MG TAB PO SCH (21:00)
[2016-02-02] MEDS: OLANZapine IM 10 MG VIAL IM PRN (21:23)
[2016-02-03 06:00] VITALS: BP 98/58; PULSE 60; RESP 16; TEMP 97.6; O2SAT 99
[2016-02-03] MEDS: NICOTINE 21 MG/24 HR PATCH T-DERMAL SCH (09:00)
[2016-02-03] MEDS: REMOVE OLD NICODERM (NICOTINE) PATCH TD SCH (09:00)
[2016-02-03] MEDS: NITROFURANTOIN MONOHYD MACROCR 100 MG CAP PO SCH ×2 (09:40→18:10)
--- NOTE | 2016-02-03 10:00 | HHI.PYPN ---
Subjective Remarks Patient seen in [address] with her son and daughter, patient retained by Rooming House Keeper Chloe with daughter to be guardian advocate. Patient continues somewhat labile though did present well and court. She continues to deny a need for physician offer medication. For now continue treatment with increasing the at bedtime Zyprexa to 10 mg Review of Systems Other No somatic complaints today Objective Alert: Yes [place]: Person, Place, Date Mood: Calm Affect: Euthymic Memory Intact: Comment (mild impairment) Hallucinations: Other (No AVH) Delusions: Yes Delusion Type: Other Suicidal: Ideation (she denies suicidal ideation) Homicidal: Ideation (No HI) Insight/Judgement Very poor Vitals/IOs Vital Signs Date Time Temp Pulse Resp B/P Pulse Ox O2 Delivery O2 Flow Rate FiO2 02/03/16 06:00 97.6 60 16 98/58 99 Intake and Output 02/02/16 02/02/16 02/03/16 08:00 16:00 00:00 Intake Total 600 ml 480 ml 360 ml Balance 600 ml 480 ml 360 ml Assessment & Plan Problem List: (1) [place] disease ICD Code: G10 (2) Dementia ICD Code: F03.90 Assessment & Plan Estimated LOS: days patient continues irritable somewhat confused labile was retained by Rooming House Keeper Chloe she medication adjustments about Discharge Planning To be determined Request HC Surrog/Guard Advoc?: Yes Problem Qualifiers (1) Dementia: Qualified Code: F02.81 - Dementia associated with other underlying disease with behavioral disturbance Leonel Monroy MD Feb 03, 2016 10:00
[2016-02-03 19:50] VITALS: BP 105/69; PULSE 63; RESP 16; TEMP 97.5
[2016-02-03] MEDS: OLANZapine ODT 5 MG TAB PO SCH (20:32)
[2016-02-04 06:42] VITALS: BP 103/51; PULSE 58; RESP 16; TEMP 98.6; O2SAT 95
[2016-02-04] MEDS: NICOTINE 21 MG/24 HR PATCH T-DERMAL SCH (09:00)
[2016-02-04] MEDS: REMOVE OLD NICODERM (NICOTINE) PATCH TD SCH (09:00)
[2016-02-04] MEDS: NITROFURANTOIN MONOHYD MACROCR 100 MG CAP PO SCH (09:46)
--- NOTE | 2016-02-04 10:32 | HHI.PYPN ---
Subjective Remarks Patient seen in her room patient in bed. Nurse Ezequiel present also. Patient somewhat calmer today somewhat better eye contact, she was compliant with the medication at bedtime last night. She also stated her children are attempting to find an RESIDENTIAL for her which appeared to be responding to fairly positively. For now continue treatment Review of Systems Other No somatic complaints today Objective Alert: Yes [place]: Person, Place, Date Mood: Calm Affect: Euthymic Memory Intact: Comment (mild impairment) Hallucinations: Other (No AVH) Delusions: Yes Delusion Type: Other Suicidal: Ideation (she denies suicidal ideation) Homicidal: Ideation (No HI) Insight/Judgement Poor Vitals/IOs Vital Signs Date Time Temp Pulse Resp B/P Pulse Ox O2 Delivery O2 Flow Rate FiO2 02/04/16 06:42 98.6 58 16 103/51 95 Intake and Output 02/03/16 02/03/16 02/04/16 08:00 16:00 00:00 Intake Total 1500 ml 360 ml Balance 1500 ml 360 ml Assessment & Plan Problem List: (1) [place]enie disease ICD Code: G10 (2) Dementia ICD Code: F03.90 Assessment & Plan Estimated LOS: days patient continues somewhat psychotic isolating but did show compliance with medication yesterday evening. For now continue treatment Discharge Planning To be determined Request HC Surrog/Guard Advoc?: Yes Problem Qualifiers (1) Dementia: Qualified Code: F02.81 - Dementia associated with other underlying disease with behavioral disturbance Leonel Monroy MD Feb 04, 2016 10:32
[2016-02-04 18:00] VITALS: BP 103/69; PULSE 83; RESP 16; TEMP 98.4; O2SAT 94
[2016-02-04] MEDS: OLANZapine ODT 5 MG TAB PO SCH (21:12)
[2016-02-05 06:07] VITALS: BP 106/70; PULSE 67; RESP 18; TEMP 97.3; O2SAT 95
[2016-02-05] MEDS: NICOTINE 21 MG/24 HR PATCH T-DERMAL SCH (09:00)
[2016-02-05] MEDS: REMOVE OLD NICODERM (NICOTINE) PATCH TD SCH (09:00)
--- NOTE | 2016-02-05 15:56 | HHI.PYPN ---
Subjective Remarks Pt seen and discussed with staff. Pt has been calm and in better behavioral control. No agitation today. Compliant with treatment. Pt reports mood is good and she denies medication side effects. No SI/HI. Objective Alert: Yes [place]: Person, Place, Date Mood: Calm Affect: Euthymic Memory Intact: Comment (mild impairment) Hallucinations: Other (No AVH) Delusions: No Delusion Type: Other Suicidal: Ideation (she denies suicidal ideation) Homicidal: Ideation (No HI) Insight/Judgement Continue current tx plan. Vitals/IOs Vital Signs Date Time Temp Pulse Resp B/P Pulse Ox O2 Delivery O2 Flow Rate FiO2 02/05/16 06:07 97.3 67 18 106/70 95 Intake and Output 02/04/16 02/04/16 02/05/16 08:00 16:00 00:00 Intake Total 360 ml 1080 ml 720 ml Balance 360 ml 1080 ml 720 ml Assessment & Plan Problem List: (1) [place] disease ICD Code: G10 (2) Dementia ICD Code: F03.90 Assessment & Plan Continue current tx plan. Estimated LOS: days Request HC Surrog/Guard Advoc?: Yes Problem Qualifiers (1) Dementia: Qualified Code: F02.81 - Dementia associated with other underlying disease with behavioral disturbance Angela Chiu MD Feb 05, 2016 15:56
[2016-02-05 20:00] VITALS: BP 108/72; PULSE 68; RESP 18; TEMP 97.7; O2SAT 96
[2016-02-05] MEDS: OLANZapine ODT 5 MG TAB PO SCH (22:25)
[2016-02-06 06:00] VITALS: BP 103/63; PULSE 86; RESP 16; TEMP 98.4; O2SAT 97
[2016-02-06] MEDS: NICOTINE 21 MG/24 HR PATCH T-DERMAL SCH (09:00)
[2016-02-06] MEDS: REMOVE OLD NICODERM (NICOTINE) PATCH TD SCH (09:00)
--- NOTE | 2016-02-06 12:25 | HHI.PYPN ---
Subjective Remarks Pt seen and discussed with staff. RN reports that pt attempted to cheek nighttime olanzapine. Pt is irritable today. Hygiene is poor and pt states that she will not bathe anymore. Staff report more labile in mood but no aggression. No SI/HI. Objective Alert: Yes [place]: Person, Place, Date Mood: Other (irritable) Affect: Labile Memory Intact: Comment (mild impairment) Hallucinations: Other (No AVH) Delusions: No Delusion Type: Other Suicidal: Ideation (she denies suicidal ideation) Homicidal: Ideation (No HI) Insight/Judgement poor Vitals/IOs Vital Signs Date Time Temp Pulse Resp B/P Pulse Ox O2 Delivery O2 Flow Rate FiO2 02/06/16 06:00 98.4 86 16 103/63 97 Intake and Output 02/05/16 02/05/16 02/06/16 08:00 16:00 00:00 Intake Total 720 ml 100 ml Balance 720 ml 100 ml Assessment & Plan Problem List: (1) [place] disease ICD Code: G10 (2) Dementia ICD Code: F03.90 Assessment & Plan Continue current tx plan. Estimated LOS: days Request HC Surrog/Guard Advoc?: Yes Problem Qualifiers (1) Dementia: Qualified Code: F02.81 - Dementia associated with other underlying disease with behavioral disturbance Angela Chiu MD Feb 06, 2016 12:25
[2016-02-06 20:33] VITALS: BP 108/69; PULSE 82; RESP 18; TEMP 98.4; O2SAT 98
[2016-02-06] MEDS: OLANZapine ODT 5 MG TAB PO SCH (21:14)
[2016-02-07] MEDS: NICOTINE 21 MG/24 HR PATCH T-DERMAL SCH (08:58)
[2016-02-07] MEDS: REMOVE OLD NICODERM (NICOTINE) PATCH TD SCH (08:59)
--- NOTE | 2016-02-07 15:48 | HHI.PYPN ---
Subjective Remarks Patient discussed with treatment team, after treatment team met with patient's son and daughter, patient seen on unit, patient continues somewhat irritable but calmer and compliant with medications. Family feels she is also improving somewhat, patient continues to be willing to consider [facility] placement continue treatment Review of Systems Other No somatic complaints today Objective Alert: Yes [place]: Person, Place, Date Mood: Other (irritable) Affect: Labile Memory Intact: Comment (mild impairment) Hallucinations: Other (No AVH) Delusions: No Delusion Type: Other Suicidal: Ideation (she denies suicidal ideation) Homicidal: Ideation (No HI) Insight/Judgement Poor Vitals/IOs Vital Signs Date Time Temp Pulse Resp B/P Pulse Ox O2 Delivery O2 Flow Rate FiO2 02/06/16 20:33 98.4 82 18 108/69 98 Intake and Output 02/06/16 02/06/16 02/06/16 07:59 15:59 23:59 Intake Total 1440 ml 960 ml Balance 1440 ml 960 ml Assessment & Plan Problem List: (1) [place] disease ICD Code: G10 (2) Dementia ICD Code: F03.90 Assessment & Plan Estimated LOS: days patient continues somewhat irritable labile, though somewhat softer, compliant medications. For now continue treatment Discharge Planning To Be determined Request HC Surrog/Guard Advoc?: Yes Problem Qualifiers (1) Dementia: Qualified Code: F02.81 - Dementia associated with other underlying disease with behavioral disturbance Leonel Monroy MD Feb 07, 2016 15:48
[2016-02-07 19:25] VITALS: BP 101/70; PULSE 80; RESP 16; TEMP 97.6
[2016-02-07] MEDS: OLANZapine ODT 5 MG TAB PO SCH (20:52)
[2016-02-08 06:22] VITALS: BP 108/60; PULSE 60; RESP 18; TEMP 97.9; O2SAT 97
--- NOTE | 2016-02-08 08:28 | HHI.PYPN ---
Subjective Remarks Patient seen in day room with nurse Nicolette, patient calmer more appropriate with me today the paranoia vigilance and anger have diminished. She is accepting of the fact that her children are looking for an [facility] for her, she is willing to go there willing to go there, patient compliant medications. For now continue treatment Review of Systems Other No somatic complaints today Objective Alert: Yes [place]: Person, Place, Date Mood: Calm, Other (marked decrease in irritability) Affect: Labile (markedly decreased) Memory Intact: Comment (mild impairment) Hallucinations: Other (No AVH) Delusions: No Delusion Type: Other Suicidal: Ideation (she denies suicidal ideation) Homicidal: Ideation (No HI) Insight/Judgement Poor Vitals/IOs Vital Signs Date Time Temp Pulse Resp B/P Pulse Ox O2 Delivery O2 Flow Rate FiO2 02/08/16 06:22 97.9 60 18 108/60 97 Intake and Output 02/07/16 02/07/16 02/08/16 08:00 16:00 00:00 Intake Total 240 ml 720 ml 930 ml Balance 240 ml 720 ml 930 ml Assessment & Plan Problem List: (1) [place] disease ICD Code: G10 (2) Dementia ICD Code: F03.90 Assessment & Plan Estimated LOS: days patient calmer more appropriate focused today, compliant medications. For now continue treatment Discharge Planning To be determined Request HC Surrog/Guard Advoc?: Yes Problem Qualifiers (1) Dementia: Qualified Code: F02.81 - Dementia associated with other underlying disease with behavioral disturbance Leonel Monroy MD Feb 08, 2016 08:28
[2016-02-08] MEDS: NICOTINE 21 MG/24 HR PATCH T-DERMAL SCH (09:00)
[2016-02-08] MEDS: REMOVE OLD NICODERM (NICOTINE) PATCH TD SCH (09:00)
[2016-02-08 19:14] VITALS: BP 119/59; PULSE 75; RESP 18; TEMP 99.2; O2SAT 96
[2016-02-08] MEDS: OLANZapine ODT 5 MG TAB PO SCH (20:55)
[2016-02-09] MEDS: NICOTINE 21 MG/24 HR PATCH T-DERMAL SCH (09:00)
[2016-02-09] MEDS: REMOVE OLD NICODERM (NICOTINE) PATCH TD SCH (09:00)
--- NOTE | 2016-02-09 10:33 | HHI.PYPN ---
Subjective Remarks Patient seen in dayroom with Esperanza, patient continues calm pleasant with me compliant medications continues to be in agreement with [facility] Review of Systems Other No somatic complaints today Objective Alert: Yes [place]: Person, Place, Date Mood: Calm, Other (marked decrease in irritability) Affect: Labile (markedly decreased) Memory Intact: Comment (mild impairment) Hallucinations: Other (No AVH) Delusions: No Delusion Type: Other Suicidal: Ideation (she denies suicidal ideation) Homicidal: Ideation (No HI) Insight/Judgement Poor Vitals/IOs Vital Signs Date Time Temp Pulse Resp B/P Pulse Ox O2 Delivery O2 Flow Rate FiO2 02/08/16 19:14 99.2 75 18 119/59 96 Intake and Output 02/08/16 02/08/16 02/09/16 08:00 16:00 00:00 Intake Total 960 ml 600 ml Balance 960 ml 600 ml Assessment & Plan Problem List: (1) [place] disease ICD Code: G10 (2) Dementia ICD Code: F03.90 Assessment & Plan Estimated LOS: days patient continue somewhat confused though calmer more compliant with medications. Now continue treatment Discharge Planning To be determined Request HC Surrog/Guard Advoc?: Yes Problem Qualifiers (1) Dementia: Qualified Code: F02.81 - Dementia associated with other underlying disease with behavioral disturbance Leonel Monroy MD Feb 09, 2016 10:33
[2016-02-09 18:21] VITALS: BP 111/68; PULSE 71; RESP 18; TEMP 99.4
[2016-02-09] MEDS: OLANZapine ODT 5 MG TAB PO SCH (21:44)
[2016-02-10 06:52] VITALS: BP 106/69; PULSE 60; RESP 18; TEMP 98; O2SAT 97
[2016-02-10] MEDS: REMOVE OLD NICODERM (NICOTINE) PATCH TD SCH (08:34)
[2016-02-10] MEDS: NICOTINE 21 MG/24 HR PATCH T-DERMAL SCH (08:34)
--- NOTE | 2016-02-10 09:07 | HHI.PYPN ---
Subjective Remarks Patient seen in dayroom with floor staff, patient continues calm pleasant with me the marked decrease in the paranoia anger and lability. Compliant medications. For now continue treatment Review of Systems Other No somatic complaints today Objective Alert: Yes [place]: Person, Place, Date Mood: Calm, Other (marked decrease in irritability) Affect: Labile (markedly decreased) Memory Intact: Comment (mild impairment) Hallucinations: Other (No AVH) Delusions: No Delusion Type: Other Suicidal: Ideation (she denies suicidal ideation) Homicidal: Ideation (No HI) Insight/Judgement Poor Vitals/IOs Vital Signs Date Time Temp Pulse Resp B/P Pulse Ox O2 Delivery O2 Flow Rate FiO2 02/10/16 06:52 98.0 60 18 106/69 97 Intake and Output 02/09/16 02/09/16 02/09/16 07:59 15:59 23:59 Intake Total 1200 ml 720 ml Balance 1200 ml 720 ml Assessment & Plan Problem List: (1) [place] disease ICD Code: G10 (2) Dementia ICD Code: F03.90 Assessment & Plan Estimated LOS: days patient continue somewhat confused but calmer with less behavioral outbursts. However at this time the patient will decompensate at a lower level of care or less restrictive setting Discharge Planning To be determined Request HC Surrog/Guard Advoc?: Yes Problem Qualifiers (1) Dementia: Qualified Code: F02.81 - Dementia associated with other underlying disease with behavioral disturbance Leonel Monroy MD Feb 10, 2016 09:07
[2016-02-10 18:00] VITALS: BP 121/70; PULSE 85; RESP 17; TEMP 97.8; O2SAT 95
[2016-02-10] MEDS: OLANZapine ODT 5 MG TAB PO SCH (21:24)
[2016-02-11] MEDS: REMOVE OLD NICODERM (NICOTINE) PATCH TD SCH (09:00)
[2016-02-11] MEDS: NICOTINE 21 MG/24 HR PATCH T-DERMAL SCH (09:00)
--- NOTE | 2016-02-11 13:47 | HHI.PYPN ---
Subjective Remarks She seen in her room with nurse Tasia, patient calm pleasant with me though continues to isolate. Is compliant with medications. No significant behavioral problems. Continues to be willing to go to [facility]. Though at this time she has been refusing to speak with her children, suggesting and anger with them at this placement Review of Systems Other No somatic complaints today Objective Alert: Yes [place]: Person, Place, Date Mood: Calm, Other (marked decrease in irritability) Affect: Labile (markedly decreased) Memory Intact: Comment (mild impairment) Hallucinations: Other (No AVH) Delusions: No Delusion Type: Other Suicidal: Ideation (she denies suicidal ideation) Homicidal: Ideation (No HI) Insight/Judgement Poor Vitals/IOs Vital Signs Date Time Temp Pulse Resp B/P Pulse Ox O2 Delivery O2 Flow Rate FiO2 02/10/16 18:00 97.8 85 17 121/70 95 Intake and Output 02/10/16 02/10/16 02/11/16 08:00 16:00 00:00 Intake Total 0 ml 580 ml Balance 0 ml 580 ml Assessment & Plan Problem List: (1) [place] disease ICD Code: G10 (2) Dementia ICD Code: F03.90 Assessment & Plan Estimated LOS: days patient continues to show increased cooperation with medication and treatment, compliant medications, no appears to be still harboring anger towards children for the referral to an [facility] however at this time patient will decompensate at a low level of care her less restrictive setting Request HC Surrog/Guard Advoc?: Yes Problem Qualifiers (1) Dementia: Qualified Code: F02.81 - Dementia associated with other underlying disease with behavioral disturbance Leonel Monroy MD Feb 11, 2016 13:47
[2016-02-11 18:00] VITALS: BP 107/65; PULSE 75; RESP 20; TEMP 97.7; O2SAT 99
[2016-02-11] MEDS: OLANZapine ODT 5 MG TAB PO SCH (20:42)
[2016-02-12 05:54] VITALS: BP 98/56; PULSE 61; RESP 16; TEMP 98.1; O2SAT 97
[2016-02-12] MEDS: NICOTINE 21 MG/24 HR PATCH T-DERMAL SCH (09:00)
[2016-02-12] MEDS: REMOVE OLD NICODERM (NICOTINE) PATCH TD SCH (09:00)
--- NOTE | 2016-02-12 15:51 | HHI.PYPN ---
Subjective Remarks Pt seen and discussed with staff. No agitation or disruptive behavior. Pt is compliant with care. She is isolative and stays in her room except for meals. No SI/HI. Objective Alert: Yes [place]: Person, Place, Date Mood: Calm, Other (marked decrease in irritability) Affect: Restricted Memory Intact: Comment (mild impairment) Hallucinations: Other (No AVH) Delusions: No Delusion Type: Other (none) Suicidal: Ideation (she denies suicidal ideation) Homicidal: Ideation (No HI) Insight/Judgement limited Vitals/IOs Vital Signs Date Time Temp Pulse Resp B/P Pulse Ox O2 Delivery O2 Flow Rate FiO2 02/12/16 05:54 98.1 61 16 98/56 97 Intake and Output 02/11/16 02/11/16 02/11/16 07:59 15:59 23:59 Intake Total 0 ml 600 ml 840 ml Balance 0 ml 600 ml 840 ml Assessment & Plan Problem List: (1) [place] disease ICD Code: G10 (2) Dementia ICD Code: F03.90 Assessment & Plan Continue current tx plan. Estimated LOS: days Request HC Surrog/Guard Advoc?: Yes Problem Qualifiers (1) Dementia: Qualified Code: F02.81 - Dementia associated with other underlying disease with behavioral disturbance Angela Chiu MD Feb 12, 2016 15:51
[2016-02-12 19:55] VITALS: BP 105/59; PULSE 75; RESP 16; TEMP 98.8; O2SAT 97
[2016-02-12] MEDS: OLANZapine ODT 5 MG TAB PO SCH (20:27)
[2016-02-13 06:44] VITALS: BP 96/54; PULSE 57; RESP 16; TEMP 98.2; O2SAT 97
[2016-02-13] MEDS: REMOVE OLD NICODERM (NICOTINE) PATCH TD SCH (09:00)
[2016-02-13] MEDS: NICOTINE 21 MG/24 HR PATCH T-DERMAL SCH (09:00)
[2016-02-13 19:19] VITALS: BP 113/73; PULSE 79; RESP 16; TEMP 98.9; O2SAT 100
--- NOTE | 2016-02-13 19:54 | HHI.PYPN ---
Subjective Remarks Pt seen and discussed with staff. She has been more irritable and seclusive today. Compliant with medications. No SI/HI. Objective Alert: Yes [place]: Person, Place, Date Mood: Calm, Other (marked decrease in irritability) Affect: Restricted Memory Intact: Comment (mild impairment) Hallucinations: Other (No AVH) Delusions: No Delusion Type: Other (none) Suicidal: Ideation (she denies suicidal ideation) Homicidal: Ideation (No HI) Insight/Judgement poor Vitals/IOs Vital Signs Date Time Temp Pulse Resp B/P Pulse Ox O2 Delivery O2 Flow Rate FiO2 02/13/16 19:19 98.9 79 16 113/73 100 Intake and Output 02/12/16 02/12/16 02/12/16 07:59 15:59 23:59 Intake Total 0 ml 1440 ml 600 ml Balance 0 ml 1440 ml 600 ml Assessment & Plan Problem List: (1) [place]enie disease ICD Code: G10 (2) Dementia ICD Code: F03.90 Assessment & Plan Continue current tx plan. Estimated LOS: days Request HC Surrog/Guard Advoc?: Yes Problem Qualifiers (1) Dementia: Qualified Code: F02.81 - Dementia associated with other underlying disease with behavioral disturbance Angela Chiu MD Feb 13, 2016 19:54
[2016-02-13] MEDS: OLANZapine ODT 5 MG TAB PO SCH (21:27)
[2016-02-14 05:54] VITALS: BP 94/61; PULSE 55; RESP 16; TEMP 97.7; O2SAT 97
[2016-02-14] MEDS: REMOVE OLD NICODERM (NICOTINE) PATCH TD SCH (09:00)
[2016-02-14] MEDS: NICOTINE 21 MG/24 HR PATCH T-DERMAL SCH (09:00)
--- NOTE | 2016-02-14 15:05 | HHI.PYPN ---
Subjective Remarks Patient discussed with treatment team, later seen on unit, continues calm with me though also continues somewhat confused chart review, patient continues to be receptive to [facility] placement though she continues also angry with her children for the decision to do this. Patient compliant with medications, no significant behavioral problems for now continue treatment Review of Systems Other No somatic complaints today Objective Alert: Yes [place]: Person, Place, Date Mood: Calm, Other (marked decrease in irritability) Affect: Restricted Memory Intact: Comment (mild impairment) Hallucinations: Other (No AVH) Delusions: No Delusion Type: Other (none) Suicidal: Ideation (she denies suicidal ideation) Homicidal: Ideation (No HI) Insight/Judgement Poor Vitals/IOs Vital Signs Date Time Temp Pulse Resp B/P Pulse Ox O2 Delivery O2 Flow Rate FiO2 02/14/16 05:54 97.7 55 16 94/61 97 Intake and Output 02/13/16 02/13/16 02/14/16 08:00 16:00 00:00 Intake Total 240 ml 720 ml 960 ml Balance 240 ml 720 ml 960 ml Assessment & Plan Problem List: (1) [place] disease ICD Code: G10 (2) Dementia ICD Code: F03.90 Assessment & Plan Estimated LOS: days patient continue somewhat confused and disoriented, though compliant medications, no significant behavioral problems. Justification for Cont. Inpt. At this time patient with severely decompensated a lower level of care a less restrictive setting Discharge Planning To be determined Request HC Surrog/Guard Advoc?: Yes Problem Qualifiers (1) Dementia: Qualified Code: F02.81 - Dementia associated with other underlying disease with behavioral disturbance Leonel Monroy MD Feb 14, 2016 15:05
[2016-02-14 18:38] VITALS: BP 111/64; PULSE 75; RESP 16; TEMP 99.1; O2SAT 96
[2016-02-14] MEDS: OLANZapine ODT 5 MG TAB PO SCH (20:18)
[2016-02-14 20:29] VITALS: BP 111/64; PULSE 75; RESP 16; TEMP 99.1; O2SAT 96
[2016-02-15 05:14] VITALS: BP 99/62; PULSE 62; RESP 16; TEMP 97.8; O2SAT 96
[2016-02-15] MEDS: REMOVE OLD NICODERM (NICOTINE) PATCH TD SCH (08:37)
[2016-02-15] MEDS: NICOTINE 21 MG/24 HR PATCH T-DERMAL SCH (08:37)
--- NOTE | 2016-02-15 09:19 | HHI.PYPN ---
Subjective Remarks Patient seen in her room with nurse Analia, chart review, patient calm cooperative with me with good eye contact, compliant medications, continues to be willing and except [facility] placement. She does continue though to be angry at her children for what she perceives as there forcing her into this placement Review of Systems Other No somatic complaints today Objective Alert: Yes [place]: Person, Place, Date Mood: Calm, Other (marked decrease in irritability) Affect: Restricted Memory Intact: Comment (mild impairment) Hallucinations: Other (No AVH) Delusions: No Delusion Type: Other (none) Suicidal: Ideation (she denies suicidal ideation) Homicidal: Ideation (No HI) Insight/Judgement Poor Vitals/IOs Vital Signs Date Time Temp Pulse Resp B/P Pulse Ox O2 Delivery O2 Flow Rate FiO2 02/15/16 05:14 97.8 62 16 99/62 96 Intake and Output 02/14/16 02/14/16 02/15/16 08:00 16:00 00:00 Intake Total 0 ml 720 ml 960 ml Balance 0 ml 720 ml 960 ml Assessment & Plan Problem List: (1) [place] disease ICD Code: G10 (2) Dementia ICD Code: F03.90 Assessment & Plan Estimated LOS: days patient continue somewhat confused, angry with her children , though compliant with medications, for now continue treatment Justification for Cont. Inpt. Patient would severely decompensate at a lower level of care less restrictive setting Discharge Planning To be determined Request HC Surrog/Guard Advoc?: Yes Problem Qualifiers (1) Dementia: Qualified Code: F02.81 - Dementia associated with other underlying disease with behavioral disturbance Leonel Monroy MD Feb 15, 2016 09:19
[2016-02-15 20:18] VITALS: BP 124/68; PULSE 90; RESP 17; TEMP 99.2; O2SAT 97
[2016-02-15] MEDS: OLANZapine ODT 5 MG TAB PO SCH (21:14)
--- NOTE | 2016-02-16 10:37 | HHI.PYPN ---
Subjective Remarks Patient seen in room today with nurse Elenita and family practice resident [place], today patient more angry paranoid irritable now refusing to go to [facility] stating she was noted apartment, or "I'll here first" will increase at bedtime Zyprexa to 15 mg Review of Systems Other No somatic complaints today Objective Alert: Yes [place]: Person, Place, Date Mood: Calm, Other (marked decrease in irritability) Affect: Restricted Memory Intact: Comment (mild impairment) Hallucinations: Other (No AVH) Delusions: No Delusion Type: Other (none) Suicidal: Ideation (she denies suicidal ideation) Homicidal: Ideation (No HI) Insight/Judgement Very poor Vitals/IOs Vital Signs Date Time Temp Pulse Resp B/P Pulse Ox O2 Delivery O2 Flow Rate FiO2 02/15/16 20:18 99.2 90 17 124/68 97 Intake and Output 02/15/16 02/15/16 02/16/16 08:00 16:00 00:00 Intake Total 360 ml 240 ml Balance 360 ml 240 ml Assessment & Plan Problem List: (1) [place] disease ICD Code: G10 (2) Dementia ICD Code: F03.90 Assessment & Plan Estimated LOS: days patient showing increased signs of paranoia irritability, she medication changes above Justification for Cont. Inpt. At this time the patient with severely decompensate at a lower level of care her less restrictive setting Discharge Planning To be determined Request HC Surrog/Guard Advoc?: Yes Problem Qualifiers (1) Dementia: Qualified Code: F02.81 - Dementia associated with other underlying disease with behavioral disturbance Leonel Monroy MD Feb 16, 2016 10:37
[2016-02-16 19:20] VITALS: BP 92/58; PULSE 72; RESP 16; TEMP 99.2
[2016-02-16] MEDS: OLANZapine ODT 15 MG TAB PO SCH (20:17)
[2016-02-17 05:58] VITALS: BP 96/66; PULSE 54; RESP 16; TEMP 97.3; O2SAT 97
--- NOTE | 2016-02-17 10:24 | HHI.PYPN ---
Subjective Remarks Patient seen in her room with floor staff,. Continues with ambivalence related to placement [facility] versus a motel or apartment. He also continues marked anger with her children related to their recommendations. Patient compliant medications Review of Systems Other No somatic complaints today Objective Alert: Yes [place]: Person, Place, Date Mood: Calm, Other (marked decrease in irritability) Affect: Restricted Memory Intact: Comment (mild impairment) Hallucinations: Other (No AVH) Delusions: No Delusion Type: Other (none) Suicidal: Ideation (she denies suicidal ideation) Homicidal: Ideation (No HI) Insight/Judgement Poor Vitals/IOs Vital Signs Date Time Temp Pulse Resp B/P Pulse Ox O2 Delivery O2 Flow Rate FiO2 02/17/16 05:58 97.3 54 16 96/66 97 Intake and Output 02/16/16 02/16/16 02/17/16 08:00 16:00 00:00 Intake Total 0 ml 1080 ml 1680 ml Balance 0 ml 1080 ml 1680 ml Assessment & Plan Problem List: (1) [place] disease ICD Code: G10 (2) Dementia ICD Code: F03.90 Assessment & Plan Estimated LOS: days patient remains somewhat paranoid, delusional, and angry with poor resistance to appropriate placement Justification for Cont. Inpt. At this time the patient was really decompensated lower level of care or less restrictive setting Discharge Planning To be determined Request HC Surrog/Guard Advoc?: Yes Problem Qualifiers (1) Dementia: Qualified Code: F02.81 - Dementia associated with other underlying disease with behavioral disturbance Leonel Monroy MD Feb 17, 2016 10:24
[2016-02-17 18:52] VITALS: BP 119/48; PULSE 71; RESP 17; TEMP 98.2
[2016-02-17] MEDS: OLANZapine ODT 15 MG TAB PO SCH (20:14)
--- NOTE | 2016-02-18 11:44 | HHI.PYPN ---
Subjective Remarks Patient seen in day room with floor staff, continues angry with her children refusing to speak with them, she continues to show ambivalence now related to placement [facility] versus oral place. Patient compliant medications Review of Systems Other No somatic complaints today Objective Alert: Yes [place]: Person, Place, Date Mood: Calm, Other (marked decrease in irritability) Affect: Restricted Memory Intact: Comment (mild impairment) Hallucinations: Other (No AVH) Delusions: No Delusion Type: Other (none) Suicidal: Ideation (she denies suicidal ideation) Homicidal: Ideation (No HI) Insight/Judgement Very poor Vitals/IOs Vital Signs Date Time Temp Pulse Resp B/P Pulse Ox O2 Delivery O2 Flow Rate FiO2 02/17/16 18:52 98.2 71 17 119/48 02/17/16 05:58 97 Intake and Output 02/17/16 02/17/16 02/18/16 08:00 16:00 00:00 Intake Total 0 ml 480 ml 360 ml Balance 0 ml 480 ml 360 ml Assessment & Plan Problem List: (1) [place] disease ICD Code: G10 (2) Dementia ICD Code: F03.90 Assessment & Plan Estimated LOS: days patient remains angry vigilant primarily focused towards children, continues ambivalent related to placement issues Justification for Cont. Inpt. At this time patient was severely decompensated lower level of care or less restrictive setting Discharge Planning To be determined Request HC Surrog/Guard Advoc?: Yes Problem Qualifiers (1) Dementia: Qualified Code: F02.81 - Dementia associated with other underlying disease with behavioral disturbance Leonel Monroy MD Feb 18, 2016 11:44
[2016-02-18 19:16] VITALS: BP 90/56; PULSE 76; RESP 16; TEMP 99.1; O2SAT 97
[2016-02-18] MEDS: OLANZapine ODT 15 MG TAB PO SCH (20:56)
--- NOTE | 2016-02-19 11:50 | HHI.PYPN ---
Subjective Remarks Patient was seen and case discussed with nursing. Patient minimizes her psychiatric symptoms. She has no insight and refocuses the conversation and her Ward's. She denies suicidal ideations thought or plan. Is compliant with medications. Per nursing she is angry at her daughter for "putting her in the hospital." Objective Alert: Yes [place]: Person, Place, Date Mood: Calm, Other (marked decrease in irritability) Affect: Restricted Memory Intact: Comment (mild impairment) Hallucinations: Other (No AVH) Delusions: No Delusion Type: Other (none) Suicidal: Ideation (she denies suicidal ideation) Homicidal: Ideation (No HI) Insight/Judgement Poor Vitals/IOs Vital Signs Date Time Temp Pulse Resp B/P Pulse Ox O2 Delivery O2 Flow Rate FiO2 02/18/16 19:16 99.1 76 16 90/56 97 Intake and Output 02/18/16 02/18/16 02/18/16 07:59 15:59 23:59 Intake Total 0 ml 960 ml 240 ml Balance 0 ml 960 ml 240 ml Assessment & Plan Problem List: (1) [place] disease ICD Code: G10 (2) Dementia ICD Code: F03.90 Assessment & Plan Estimated LOS: days Justification for Cont. Inpt. Patient would decompensate at a lower level of care Request HC Surrog/Guard Advoc?: Yes Problem Qualifiers (1) Dementia: Qualified Code: F02.81 - Dementia associated with other underlying disease with behavioral disturbance Christiano Bill DO Feb 19, 2016 11:50
[2016-02-19 18:00] VITALS: BP 101/62; PULSE 70; RESP 20; TEMP 99; O2SAT 98
[2016-02-19 18:33] VITALS: BP 90/56; PULSE 76; RESP 16; TEMP 99.1; O2SAT 97
[2016-02-19] MEDS: OLANZapine ODT 15 MG TAB PO SCH (20:55)
[2016-02-20 06:22] VITALS: BP 100/63; PULSE 54; RESP 16; TEMP 97; O2SAT 94
--- NOTE | 2016-02-20 12:51 | HHI.PYPN ---
Subjective Remarks Patient was seen and case discussed with nursing. Patient continues to have poor insight into her admission. "Nothing new. Looking for place." Patient is irritable that her roommate is attention seeking. Compliant with medications and denies suicidal ideations thought or plan Objective Alert: Yes [place]: Person, Place, Date Mood: Calm, Other (marked decrease in irritability) Affect: Restricted Memory Intact: Comment (mild impairment) Hallucinations: Other (No AVH) Delusions: No Delusion Type: Other (none) Suicidal: Ideation (she denies suicidal ideation) Homicidal: Ideation (No HI) Insight/Judgement Poor Vitals/IOs Vital Signs Date Time Temp Pulse Resp B/P Pulse Ox O2 Delivery O2 Flow Rate FiO2 02/20/16 06:22 97.0 54 16 100/63 94 Intake and Output 02/19/16 02/19/16 02/19/16 07:59 15:59 23:59 Intake Total 1680 ml 480 ml Balance 1680 ml 480 ml Assessment & Plan Problem List: (1) [place] disease ICD Code: G10 (2) Dementia ICD Code: F03.90 Assessment & Plan Continue current treatment plan Justification for Cont. Inpt. Patient would decompensate in a less restrictive setting Request HC Surrog/Guard Advoc?: Yes Problem Qualifiers (1) Dementia: Qualified Code: F02.81 - Dementia associated with other underlying disease with behavioral disturbance Christiano Bill DO Feb 20, 2016 12:51
[2016-02-20 17:39] VITALS: BP 104/71; PULSE 80; RESP 16; TEMP 98.5; O2SAT 97
[2016-02-20] MEDS: OLANZapine ODT 15 MG TAB PO SCH (20:54)
--- NOTE | 2016-02-21 13:04 | HHI.PYPN ---
Subjective Remarks Patient discussed with treatment team, chart reviewed, patient seen on unit. Patient continues to be somewhat irritable with resistance and reluctance to accept placement recommendations of [facility] stating she would rather live in a motel or live here forever. Patient showing little insight into this, patient is compliant with medications will increase at bedtime Zyprexa to 20 mg Review of Systems Other No somatic complaints today Objective Alert: Yes [place]: Person, Place, Date Mood: Calm, Other (marked decrease in irritability) Affect: Restricted Memory Intact: Comment (mild impairment) Hallucinations: Other (No AVH) Delusions: No Delusion Type: Other (none) Suicidal: Ideation (she denies suicidal ideation) Homicidal: Ideation (No HI) Insight/Judgement Poor Vitals/IOs Vital Signs Date Time Temp Pulse Resp B/P Pulse Ox O2 Delivery O2 Flow Rate FiO2 02/20/16 17:39 98.5 80 16 104/71 97 Intake and Output 02/20/16 02/20/16 02/21/16 08:00 16:00 00:00 Intake Total 240 ml 360 ml Balance 240 ml 360 ml Assessment & Plan Problem List: (1) [place] disease ICD Code: G10 (2) Dementia ICD Code: F03.90 Assessment & Plan Estimated LOS: days patient continues confused irritable with issues related to placement, continues markedly angry with children related to that Justification for Cont. Inpt. At this time the patient will decompensate at a lower level of care Discharge Planning To be determined Request HC Surrog/Guard Advoc?: Yes Problem Qualifiers (1) Dementia: Qualified Code: F02.81 - Dementia associated with other underlying disease with behavioral disturbance Leonel Monroy MD Feb 21, 2016 13:04
[2016-02-21 20:00] VITALS: BP 109/60; PULSE 78; RESP 16; TEMP 98.7; O2SAT 98
[2016-02-21] MEDS: OLANZapine ODT 20 MG TAB PO SCH (20:37)
[2016-02-22 05:56] VITALS: BP 97/56; PULSE 58; RESP 16; TEMP 97.7; O2SAT 96
--- NOTE | 2016-02-22 13:10 | HHI.PYPN ---
Subjective Remarks Patient seen in her room with floor staff, patient laying in bed, though she was up for lunch today and did some brief socializing. Patient is somewhat softer in her irritability and anger related to placement no appears to be coming to the realization of an [facility] placement, though she still wonders if an apartment or motel could be an alternative. I declined that option. Patient compliant with medication, does denies suicidality homicidality Review of Systems Other No somatic complaints today Objective Alert: Yes [place]: Person, Place, Date Mood: Calm, Other (marked decrease in irritability) Affect: Restricted Memory Intact: Comment (mild impairment) Hallucinations: Other (No AVH) Delusions: No Delusion Type: Other (none) Suicidal: Ideation (she denies suicidal ideation) Homicidal: Ideation (No HI) Insight/Judgement Poor Vitals/IOs Vital Signs Date Time Temp Pulse Resp B/P Pulse Ox O2 Delivery O2 Flow Rate FiO2 02/22/16 05:56 97.7 58 16 97/56 96 Intake and Output 02/21/16 02/21/16 02/21/16 07:59 15:59 23:59 Intake Total 0 ml 720 ml 1260 ml Balance 0 ml 720 ml 1260 ml Assessment & Plan Problem List: (1) [place] disease ICD Code: G10 (2) Dementia ICD Code: F03.90 Assessment & Plan Estimated LOS: days patient continues confused and demented, though her paranoia and resistance to placement is softening Justification for Cont. Inpt. At this time the patient would severely decompensate at a lower level of care Discharge Planning To be determined Request HC Surrog/Guard Advoc?: Yes Problem Qualifiers (1) Dementia: Qualified Code: F02.81 - Dementia associated with other underlying disease with behavioral disturbance Leonel Monroy MD Feb 22, 2016 13:10
[2016-02-22 19:48] VITALS: BP 100/63; PULSE 73; RESP 16; TEMP 98.9
[2016-02-22] MEDS: OLANZapine ODT 20 MG TAB PO SCH (21:00)
--- NOTE | 2016-02-23 14:06 | HHI.PYPN ---
Subjective Remarks Patient seen in her room with floor staff, patient calm today though with a decrease in her eye contact, patient continues to show reluctant agreement to [facility] placement, though she continues to ask about an apartment or hotel. Patient compliant with medications Review of Systems Other No somatic complaints today Objective Alert: Yes [place]: Person, Place, Date Mood: Calm, Other (marked decrease in irritability) Affect: Restricted Memory Intact: Comment (mild impairment) Hallucinations: Other (No AVH) Delusions: No Delusion Type: Other (none) Suicidal: Ideation (she denies suicidal ideation) Homicidal: Ideation (No HI) Insight/Judgement Poor Vitals/IOs Vital Signs Date Time Temp Pulse Resp B/P Pulse Ox O2 Delivery O2 Flow Rate FiO2 02/22/16 19:48 98.9 73 16 100/63 02/22/16 05:56 96 Intake and Output 02/22/16 02/22/16 02/23/16 08:00 16:00 00:00 Intake Total 0 ml 1200 ml 600 ml Balance 0 ml 1200 ml 600 ml Assessment & Plan Problem List: (1) [place] disease ICD Code: G10 (2) Dementia ICD Code: F03.90 Assessment & Plan Estimated LOS: days if remains confused disoriented, with some reluctance to accept placement though compliant medications Justification for Cont. Inpt. At this time patient would severely decompensated a lower level of care Discharge Planning To be determined Request HC Surrog/Guard Advoc?: Yes Problem Qualifiers (1) Dementia: Qualified Code: F02.81 - Dementia associated with other underlying disease with behavioral disturbance Leonel Monroy MD Feb 23, 2016 14:06
[2016-02-23 18:00] VITALS: BP 124/75; PULSE 73; RESP 17; TEMP 98.8; O2SAT 94
[2016-02-23] MEDS: OLANZapine ODT 20 MG TAB PO SCH (21:00)
--- NOTE | 2016-02-24 13:15 | HHI.PYPN ---
Subjective Remarks Patient seen in her room with nurse Keesha, chart review, patient continues to isolate, though no behavioral problems, is up to eat, minimum socializing with other patient's or staff. Compliant medications. She appears to continue to be reluctantly for placement of an [facility], though she also continues to ask about the possibility of an apartment or motel Review of Systems Other No somatic complaints today Objective Alert: Yes [place]: Person, Place, Date Mood: Calm, Other (marked decrease in irritability) Affect: Restricted Memory Intact: Comment (mild impairment) Hallucinations: Other (No AVH) Delusions: No Delusion Type: Other (none) Suicidal: Ideation (she denies suicidal ideation) Homicidal: Ideation (No HI) Insight/Judgement Very poor Vitals/IOs Vital Signs Date Time Temp Pulse Resp B/P Pulse Ox O2 Delivery O2 Flow Rate FiO2 02/23/16 18:00 98.8 73 17 124/75 94 Intake and Output 02/23/16 02/23/16 02/24/16 08:00 16:00 00:00 Intake Total 0 ml 1080 ml 1680 ml Balance 0 ml 1080 ml 1680 ml Assessment & Plan Problem List: (1) [place]en[place] disease ICD Code: G10 (2) Dementia ICD Code: F03.90 Assessment & Plan Estimated LOS: days patient continues confused somewhat demented, compliant medications, placement continues to remain problematic Justification for Cont. Inpt. Patient was really decompensate at a lower level of care Discharge Planning To be determined Request HC Surrog/Guard Advoc?: Yes Problem Qualifiers (1) Dementia: Qualified Code: F02.81 - Dementia associated with other underlying disease with behavioral disturbance Leonel Monroy MD Feb 24, 2016 13:15
[2016-02-24 18:32] VITALS: BP 98/56; PULSE 71; RESP 18; TEMP 99.1; O2SAT 98
[2016-02-24] MEDS: OLANZapine ODT 20 MG TAB PO SCH (20:29)
[2016-02-25 06:00] VITALS: BP 101/56; PULSE 60; RESP 16; TEMP 97.6; O2SAT 97
[2016-02-25] MEDS ORDERED: PILL SPLITTER OTHER PRN (12:15)
--- NOTE | 2016-02-25 12:17 | HHI.PYPN ---
Subjective Remarks Patient seen in her room with nurse Dinora, chart reviewed, patient continues quite angry paranoid focusing on her children's behavior, her believing that they had her "arrested" in her placing her in an [facility]. She shows no insight into her behaviors that led to this. Continues to isolate coming out only for meals and infrequent activities. Her hygiene is not will this time saying she would rather sponge bath and take a shower though she is becoming somewhat malodorous while she denies depression her behavior and affect reflect that. Will offer patient Zoloft 25 mg by mouth daily. Will have staff encourage her to shower. Considering patient's reluctance to consider an [facility] I wonder whether exploring the option of a family halfway might be possible Review of Systems Other No somatic complaints today Objective Alert: Yes [place]: Person, Place, Date Mood: Calm, Other (marked decrease in irritability) Affect: Restricted Memory Intact: Comment (mild impairment) Hallucinations: Other (No AVH) Delusions: No Delusion Type: Other (none) Suicidal: Ideation (she denies suicidal ideation) Homicidal: Ideation (No HI) Insight/Judgement Poor Vitals/IOs Vital Signs Date Time Temp Pulse Resp B/P Pulse Ox O2 Delivery O2 Flow Rate FiO2 02/25/16 06:00 97.6 60 16 101/56 97 Intake and Output 02/24/16 02/24/16 02/25/16 08:00 16:00 00:00 Intake Total 960 ml 1080 ml Balance 960 ml 1080 ml Assessment & Plan Problem List: (1) [place] disease ICD Code: G10 (2) Dementia ICD Code: F03.90 Assessment & Plan Estimated LOS: days patient continues angry irritable depressed, will add Zoloft 25 mg daily to regimen, also encourage staff to help with showering and hygiene, also ask staff to explore possibility of a small family halfway setting Justification for Cont. Inpt. At this time the patient was severely decompensated a lower level of care Discharge Planning To be determined Request HC Surrog/Guard Advoc?: Yes Problem Qualifiers (1) Dementia: Qualified Code: F02.81 - Dementia associated with other underlying disease with behavioral disturbance Leonel Monroy MD Feb 25, 2016 12:17
[2016-02-25 19:46] VITALS: BP 98/56; PULSE 75; RESP 16; TEMP 98.9; O2SAT 95
[2016-02-25] MEDS: OLANZapine ODT 20 MG TAB PO SCH (21:00)
[2016-02-26] MEDS: SERTRALINE HCL 50 MG TAB PO SCH (10:16)
--- NOTE | 2016-02-26 17:02 | HHI.PYPN ---
Subjective Remarks Patient seen in her room with floor staff, continues to isolate, continues angry at her children blaming them for placement in here and placement issues. Patient continues to be resistant to [facility] placement, compliant medications Review of Systems Other No somatic complaints today Objective Alert: Yes [place]: Person, Place, Date Mood: Calm, Other (marked decrease in irritability) Affect: Restricted Memory Intact: Comment (mild impairment) Hallucinations: Other (No AVH) Delusions: No Delusion Type: Other (none) Suicidal: Ideation (she denies suicidal ideation) Homicidal: Ideation (No HI) Insight/Judgement Very poor Vitals/IOs Vital Signs Date Time Temp Pulse Resp B/P Pulse Ox O2 Delivery O2 Flow Rate FiO2 02/25/16 19:46 98.9 75 16 98/56 95 Intake and Output 02/25/16 02/25/16 02/25/16 07:59 15:59 23:59 Intake Total 0 ml 1560 ml 840 ml Balance 0 ml 1560 ml 840 ml Assessment & Plan Problem List: (1) [place]en[place] disease ICD Code: G10 (2) Dementia ICD Code: F03.90 Assessment & Plan Estimated LOS: days patient continue somewhat confused and demented, with anger vigilance towards children Justification for Cont. Inpt. At this time patient would severely decompensated place to less restrictive setting Discharge Planning To be determined Request HC Surrog/Guard Advoc?: Yes Problem Qualifiers (1) Dementia: Qualified Code: F02.81 - Dementia associated with other underlying disease with behavioral disturbance Leonel Monroy MD Feb 26, 2016 17:02
[2016-02-26 19:51] VITALS: BP 109/77; PULSE 65; RESP 16; TEMP 96.3; O2SAT 97
[2016-02-26] MEDS: OLANZapine ODT 20 MG TAB PO SCH (21:00)
[2016-02-27] MEDS: SERTRALINE HCL 50 MG TAB PO SCH (09:00)
--- NOTE | 2016-02-27 12:19 | HHI.PYPN ---
Subjective Remarks Patient was seen and case discussed with nursing. Patient was interviewed in bed and is largely seclusive today. She has been compliant with her Zoloft and hopes the medication will help. She denies suicidal ideation or plan. Continues to minimize her admission Objective Alert: Yes [place]: Person, Place, Date Mood: Calm, Other (marked decrease in irritability) Affect: Restricted Memory Intact: Comment (mild impairment) Hallucinations: Other (No AVH) Delusions: No Delusion Type: Other (none) Suicidal: Ideation (she denies suicidal ideation) Homicidal: Ideation (No HI) Insight/Judgement Poor Vitals/IOs Vital Signs Date Time Temp Pulse Resp B/P Pulse Ox O2 Delivery O2 Flow Rate FiO2 02/26/16 19:51 96.3 65 16 109/77 97 Intake and Output 02/26/16 02/26/16 02/27/16 08:00 16:00 00:00 Intake Total 120 ml 480 ml 840 ml Balance 120 ml 480 ml 840 ml Assessment & Plan Problem List: (1) [place] disease ICD Code: G10 (2) Dementia ICD Code: F03.90 Assessment & Plan Continue current treatment plan Justification for Cont. Inpt. Patient will decompensate in a less restrictive setting Request HC Surrog/Guard Advoc?: Yes Problem Qualifiers (1) Dementia: Qualified Code: F02.81 - Dementia associated with other underlying disease with behavioral disturbance Christiano Bill DO Feb 27, 2016 12:19
[2016-02-27 19:30] VITALS: BP 116/83; PULSE 70; RESP 18; TEMP 96.7; O2SAT 99
[2016-02-27] MEDS: OLANZapine ODT 20 MG TAB PO SCH (21:00)
[2016-02-28] MEDS: SERTRALINE HCL 50 MG TAB PO SCH (09:00)
--- NOTE | 2016-02-28 15:49 | HHI.PYPN ---
Subjective Remarks Patient discussed with treatment team, seen on unit, chart reviewed, patient continues angry with her children. Continues resistant to looking towards [facility] or placement though when we feel she would accept that placement once that is accomplished. For now continue treatment no change Review of Systems Other No somatic complaints at this time Objective Alert: Yes [place]: Person, Place, Date Mood: Calm, Other (marked decrease in irritability) Affect: Restricted Memory Intact: Comment (mild impairment) Hallucinations: Other (No AVH) Delusions: No Delusion Type: Other (none) Suicidal: Ideation (she denies suicidal ideation) Homicidal: Ideation (No HI) Insight/Judgement Poor Vitals/IOs Vital Signs Date Time Temp Pulse Resp B/P Pulse Ox O2 Delivery O2 Flow Rate FiO2 02/27/16 19:30 96.7 70 18 116/83 99 Intake and Output 02/27/16 02/27/16 02/28/16 08:00 16:00 00:00 Intake Total 480 ml 480 ml Balance 480 ml 480 ml Assessment & Plan Problem List: (1) [place]en[place] disease ICD Code: G10 (2) Dementia ICD Code: F03.90 Assessment & Plan Estimated LOS: days patient continues confused angry and irritable with resistance towards placement, although compliant medications Justification for Cont. Inpt. At this time patient would decompensate a place at a lower level of care Discharge Planning To be determined Request HC Surrog/Guard Advoc?: Yes Problem Qualifiers (1) Dementia: Qualified Code: F02.81 - Dementia associated with other underlying disease with behavioral disturbance Leonel Monroy MD Feb 28, 2016 15:49
[2016-02-28 20:01] VITALS: BP 116/68; PULSE 64; RESP 17; TEMP 98.4; O2SAT 97
[2016-02-28] MEDS: OLANZapine ODT 20 MG TAB PO SCH (20:49)
[2016-02-29] MEDS: SERTRALINE HCL 50 MG TAB PO SCH (09:34)
--- NOTE | 2016-02-29 09:54 | HHI.PYPN ---
Subjective Remarks Patient seen and a room with nurse Nicolette, in bed with covers to her chin. Patient continues markedly angry focusing on her children and their recommendations for placement in an [facility]. Patient compliant medications.. Patient appears to be reluctantly accepting that placement recommendations Review of Systems Other No somatic complaints today Objective Alert: Yes [place]: Person, Place, Date Mood: Calm, Other (marked decrease in irritability) Affect: Restricted Memory Intact: Comment (mild impairment) Hallucinations: Other (No AVH) Delusions: No Delusion Type: Other (none) Suicidal: Ideation (she denies suicidal ideation) Homicidal: Ideation (No HI) Insight/Judgement Very poor Vitals/IOs Vital Signs Date Time Temp Pulse Resp B/P Pulse Ox O2 Delivery O2 Flow Rate FiO2 02/28/16 20:01 98.4 64 17 116/68 97 Intake and Output 02/28/16 02/28/16 02/29/16 08:00 16:00 00:00 Intake Total 120 ml 600 ml 960 ml Balance 120 ml 600 ml 960 ml Assessment & Plan Problem List: (1) [place] disease ICD Code: G10 (2) Dementia ICD Code: F03.90 Assessment & Plan Estimated LOS: days patient continues confused demented, with anger towards her children, Justification for Cont. Inpt. At this time patient was significantly decompensated placed in the lower level of care Discharge Planning To be determined Request HC Surrog/Guard Advoc?: Yes Problem Qualifiers (1) Dementia: Qualified Code: F02.81 - Dementia associated with other underlying disease with behavioral disturbance Leonel Monroy MD Feb 29, 2016 09:54
[2016-02-29 20:20] VITALS: BP 118/60; PULSE 68; RESP 18; TEMP 99.3; O2SAT 98
[2016-02-29] MEDS: OLANZapine ODT 20 MG TAB PO SCH (20:26)
[2016-03-01] MEDS: SERTRALINE HCL 50 MG TAB PO SCH (08:40)
--- NOTE | 2016-03-01 09:30 | HHI.PYPN ---
Subjective Remarks Patient seen in her room patient bed covers to her chin, seen with nurse Elenita, patient continues angry irritable focusing on her children. Continues reluctantly voicing opposition to placement in [facility]. For now continue treatment Review of Systems Other No somatic complaints today Objective Alert: Yes [place]: Person, Place, Date Mood: Calm, Other (marked decrease in irritability) Affect: Restricted Memory Intact: Comment (mild impairment) Hallucinations: Other (No AVH) Delusions: No Delusion Type: Other (none) Suicidal: Ideation (she denies suicidal ideation) Homicidal: Ideation (No HI) Insight/Judgement Poor Vitals/IOs Vital Signs Date Time Temp Pulse Resp B/P Pulse Ox O2 Delivery O2 Flow Rate FiO2 02/29/16 20:20 99.3 68 18 118/60 98 Intake and Output 02/29/16 02/29/16 03/01/16 08:00 16:00 00:00 Intake Total 120 ml 360 ml 700 ml Balance 120 ml 360 ml 700 ml Assessment & Plan Problem List: (1) [place] disease ICD Code: G10 (2) Dementia ICD Code: F03.90 Assessment & Plan Estimated LOS: days patient continues somewhat confused disoriented, continues angry her children continues with some reluctance towards excepting placement in [facility] Justification for Cont. Inpt. At this time place would significantly deteriorated placed in the lower level of care Discharge Planning To be determined Request HC Surrog/Guard Advoc?: Yes Problem Qualifiers (1) Dementia: Qualified Code: F02.81 - Dementia associated with other underlying disease with behavioral disturbance Leonel Monroy MD Mar 01, 2016 09:30
[2016-03-01 19:54] VITALS: BP 103/57; PULSE 76; RESP 15; TEMP 99.7; O2SAT 94
[2016-03-01] MEDS: OLANZapine ODT 20 MG TAB PO SCH (21:00)
[2016-03-02] MEDS: SERTRALINE HCL 50 MG TAB PO SCH (09:00)
--- NOTE | 2016-03-02 13:02 | HHI.PYPN ---
Subjective Remarks Patient seen in day room with nurse Abdiel, patient calm pleasant with me though still shows the anger and irritability when referring to her children and their decision on placement. The patient continues to also show some resistance to [facility] placement. Patient continues also somewhat confused, compliant medications Review of Systems Other No somatic complaints today Objective Alert: Yes [place]: Person, Place, Date Mood: Calm, Other (marked decrease in irritability) Affect: Restricted Memory Intact: Comment (mild impairment) Hallucinations: Other (No AVH) Delusions: No Delusion Type: Other (none) Suicidal: Ideation (she denies suicidal ideation) Homicidal: Ideation (No HI) Insight/Judgement Poor Vitals/IOs Vital Signs Date Time Temp Pulse Resp B/P Pulse Ox O2 Delivery O2 Flow Rate FiO2 03/01/16 19:54 99.7 76 15 103/57 94 Intake and Output 03/01/16 03/01/16 03/01/16 07:59 15:59 23:59 Intake Total 120 ml 1200 ml 1080 ml Balance 120 ml 1200 ml 1080 ml Assessment & Plan Problem List: (1) [place] disease ICD Code: G10 (2) Dementia ICD Code: F03.90 Assessment & Plan Estimated LOS: days patient continues somewhat confused, angry with children, and resistant to placement. Justification for Cont. Inpt. At this time patient will decompensate a placed on the lower level of care Discharge Planning To be determined Request HC Surrog/Guard Advoc?: Yes Problem Qualifiers (1) Dementia: Qualified Code: F02.81 - Dementia associated with other underlying disease with behavioral disturbance Leonel Monroy MD Mar 02, 2016 13:02
[2016-03-02] MEDS: OLANZapine ODT 20 MG TAB PO SCH (20:38)
[2016-03-03 05:58] VITALS: BP 100/64; PULSE 62; RESP 18; TEMP 97.2; O2SAT 95
[2016-03-03] MEDS: SERTRALINE HCL 50 MG TAB PO SCH (09:21)
--- NOTE | 2016-03-03 15:16 | HHI.PYPN ---
Subjective Remarks Patient seen in her room with nurse Analia, chart review, patient calm somewhat confused, pleasant with me no behavioral problems, though she still remains quite angry and upset with her children refusing to speak with them. Review of Systems Other No somatic complaint today Objective Alert: Yes [place]: Person, Place, Date Mood: Calm, Other (marked decrease in irritability) Affect: Restricted Memory Intact: Comment (mild impairment) Hallucinations: Other (No AVH) Delusions: No Delusion Type: Other (none) Suicidal: Ideation (she denies suicidal ideation) Homicidal: Ideation (No HI) Insight/Judgement Poor Vitals/IOs Vital Signs Date Time Temp Pulse Resp B/P Pulse Ox O2 Delivery O2 Flow Rate FiO2 03/03/16 05:58 97.2 62 18 100/64 95 Intake and Output 03/02/16 03/02/16 03/02/16 07:59 15:59 23:59 Intake Total 120 ml 960 ml 240 ml Balance 120 ml 960 ml 240 ml Assessment & Plan Problem List: (1) [place] disease ICD Code: G10 (2) Dementia ICD Code: F03.90 Assessment & Plan Estimated LOS: days patient continue somewhat depressed isolating angry with children Justification for Cont. Inpt. At this time patient will decompensate placed a lower level of care Discharge Planning To be determined Request HC Surrog/Guard Advoc?: Yes Problem Qualifiers (1) Dementia: Qualified Code: F02.81 - Dementia associated with other underlying disease with behavioral disturbance Leonel Monroy MD Mar 03, 2016 15:16
[2016-03-03 19:48] VITALS: BP 95/61; PULSE 81; RESP 18; TEMP 99.3; O2SAT 99
[2016-03-03] MEDS: OLANZapine ODT 20 MG TAB PO SCH (21:00)
[2016-03-04 06:03] VITALS: BP 92/53; PULSE 61; RESP 18; TEMP 98.5; O2SAT 99
[2016-03-04] MEDS: SERTRALINE HCL 50 MG TAB PO SCH (09:00)
--- NOTE | 2016-03-04 09:03 | HHI.PYPN ---
Subjective Remarks Patient seen and examined with nursing. Chart reviewed. 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 On my examination today, the patient reports that she is feeling a little happier. She thinks that her antidepressant medication might be starting to work. She denies side effects from medications. She denies any urge to hurt herself on the inpatient unit but still says that she would like to avail herself of physician assisted suicide. Review of Systems Other No physical complaints today Objective Alert: Yes [place]: Person, Place Mood: Calm Affect: Blunted Memory Intact: Comment (not formally assessed) Hallucinations: Other (no AVH) Delusions: No Delusion Type: Other (no delusional material) Suicidal: Ideation (no urge to hurt herself on the inpatient psychiatric unit but see above) Homicidal: Ideation (no HI voiced) Insight/Judgement Seems fair Remarks Choreiform movements noted but otherwise no abnormal motor movements noted. Thought process fairly linear. Labs Labs reviewed. No new labs Vitals/IOs Vital Signs Date Time Temp Pulse Resp B/P Pulse Ox O2 Delivery O2 Flow Rate FiO2 03/04/16 06:03 98.5 61 18 92/53 99 Intake and Output 03/03/16 03/03/16 03/04/16 08:00 16:00 00:00 Intake Total 360 ml 840 ml 440 ml Output Total 0 ml Balance 360 ml 840 ml 440 ml Assessment & Plan Problem List: (1) Eugenie disease ICD Code: G10 (2) Dementia ICD Code: F03.90 Assessment & Plan Continue current psychotropics as ordered. Continue other medications include care as ordered. I do note patient's blood pressure has been a little on the low side, but this is within the historical range for her. Justification for Cont. Inpt. Risk for decompensation. Discharge Planning Per Dr. Monroy Request HC Surrog/Guard Advoc?: Yes Problem Qualifiers (1) Dementia: Qualified Code: F02.81 - Dementia associated with other underlying disease with behavioral disturbance Dinh Prescott MD Mar 04, 2016 09:02
[2016-03-04 19:20] VITALS: BP 120/80; PULSE 71; RESP 18; TEMP 98; O2SAT 97
[2016-03-04] MEDS: OLANZapine ODT 20 MG TAB PO SCH (21:00)
[2016-03-05] MEDS: SERTRALINE HCL 50 MG TAB PO SCH (08:13)
--- NOTE | 2016-03-05 12:16 | HHI.PYPN ---
Subjective Remarks Patient seen and examined with nursing staff. Chart reviewed. Case discussed with nursing staff who reports patient has been medication compliant. On my examination today, patient reports that she is feeling "happier each day." This seems a little bit superficial and forced today. Denies side effects from medications. No SI or HI voiced. Review of Systems Other No new physical complaints today Objective Alert: Yes [place]: Person, Place Mood: Calm Affect: Other (fairly full and reactive) Memory Intact: Comment (not assessed) Hallucinations: Other (no AVH) Delusions: No Delusion Type: Other (no delusions) Suicidal: Ideation (no SI) Homicidal: Ideation (no HI) Insight/Judgement Fair to poor Remarks Thought processes linear Labs Labs reviewed. No new labs. Vitals/IOs Vital Signs Date Time Temp Pulse Resp B/P Pulse Ox O2 Delivery O2 Flow Rate FiO2 03/04/16 19:20 98.0 71 18 120/80 97 Intake and Output 03/04/16 03/04/16 03/05/16 08:00 16:00 00:00 Intake Total 360 ml 840 ml 480 ml Balance 360 ml 840 ml 480 ml Assessment & Plan Problem List: (1) [place] disease ICD Code: G10 (2) Dementia ICD Code: F03.90 Assessment & Plan Continue current psychotropics as ordered. Continue other medications and care as ordered. Justification for Cont. Inpt. Risk for decompensation Discharge Planning Per Dr. Monroy Request HC Surrog/Guard Advoc?: Yes Problem Qualifiers (1) Dementia: Qualified Code: F02.81 - Dementia associated with other underlying disease with behavioral disturbance Dinh Prescott MD Mar 05, 2016 12:16
[2016-03-05 18:00] VITALS: BP 139/64; PULSE 100; RESP 16; TEMP 98.2; O2SAT 98
[2016-03-05] MEDS: OLANZapine ODT 20 MG TAB PO SCH (21:00)
[2016-03-06 06:00] VITALS: BP 105/59; PULSE 59; RESP 17; TEMP 97.3; O2SAT 95
[2016-03-06] MEDS: SERTRALINE HCL 50 MG TAB PO SCH (09:00)
--- NOTE | 2016-03-06 16:05 | HHI.PYPN ---
Subjective Remarks Patient discussed with treatment team and patient's son, chart review, patient seen on unit. Patient remains overall calm pleasant with us though continues to isolate, continues markedly angry and irritated with her children concerning their position on her returning home or placement issues. Continue to work with children to find appropriate placement. Patient compliant medications does denies suicidality Review of Systems Except as stated in HPI: all other systems reviewed are Neg Objective Alert: Yes [place]: Person, Place Mood: Calm Affect: Other (fairly full and reactive) Memory Intact: Comment (not assessed) Hallucinations: Other (no AVH) Delusions: No Delusion Type: Other (no delusions) Suicidal: Ideation (no SI) Homicidal: Ideation (no HI) Insight/Judgement Very poor Vitals/IOs Vital Signs Date Time Temp Pulse Resp B/P Pulse Ox O2 Delivery O2 Flow Rate FiO2 03/06/16 06:00 97.3 59 17 105/59 95 Intake and Output 03/05/16 03/05/16 03/05/16 07:59 15:59 23:59 Intake Total 0 ml 1680 ml 1080 ml Output Total 1 ml Balance -1 ml 1680 ml 1080 ml Assessment & Plan Problem List: (1) Eugenie disease ICD Code: G10 (2) Dementia ICD Code: F03.90 Assessment & Plan Estimated LOS: days patient continues somewhat depressed and confused, though coping with stress related to placement issues, however continues markedly angry focused on children Justification for Cont. Inpt. At this time patient will decompensate a placed a lower level of care Discharge Planning To be determined Request HC Surrog/Guard Advoc?: Yes Problem Qualifiers (1) Dementia: Qualified Code: F02.81 - Dementia associated with other underlying disease with behavioral disturbance Leonel Monroy MD Mar 06, 2016 16:05
[2016-03-06 19:35] VITALS: BP 123/75; PULSE 75; RESP 18; TEMP 99.3
[2016-03-06] MEDS: OLANZapine ODT 20 MG TAB PO SCH (21:00)
[2016-03-07] MEDS: SERTRALINE HCL 50 MG TAB PO SCH (09:00)
--- NOTE | 2016-03-07 12:01 | HHI.PYPN ---
Subjective Remarks Patient seen in day room with nurse Elenita, chart reviewed, patient continues calm and pleasant with me, compliant medications, thoroughly anger episodes a related to references to her children and placement issues. There appears to be some lessening of cognitive issues initially noted with slightly Review of Systems Except as stated in HPI: all other systems reviewed are Neg Objective Alert: Yes [place]: Person, Place Mood: Calm Affect: Other (fairly full and reactive) Memory Intact: Comment (not assessed) Hallucinations: Other (no AVH) Delusions: No Delusion Type: Other (no delusions) Suicidal: Ideation (no SI) Homicidal: Ideation (no HI) Insight/Judgement Very poor Vitals/IOs Vital Signs Date Time Temp Pulse Resp B/P Pulse Ox O2 Delivery O2 Flow Rate FiO2 03/06/16 19:35 99.3 75 18 123/75 03/06/16 06:00 95 Intake and Output 03/06/16 03/06/16 03/07/16 08:00 16:00 00:00 Intake Total 1320 ml 840 ml Balance 1320 ml 840 ml Assessment & Plan Problem List: (1) [place] disease ICD Code: G10 (2) Dementia ICD Code: F03.90 Assessment & Plan Estimated LOS: days patient continue somewhat confused though more oriented than earlier in this admission, compliant medications, for now continue treatment Justification for Cont. Inpt. At this time patient would decompensated placed in a lower level of care Discharge Planning To be determined Request HC Surrog/Guard Advoc?: Yes Problem Qualifiers (1) Dementia: Qualified Code: F02.81 - Dementia associated with other underlying disease with behavioral disturbance Leonel Monroy MD Mar 07, 2016 12:01
[2016-03-07 18:47] VITALS: BP 103/59; PULSE 74; RESP 18; TEMP 99; O2SAT 95
[2016-03-07] MEDS: OLANZapine ODT 20 MG TAB PO SCH (21:00)
[2016-03-08 05:21] VITALS: BP 87/54; PULSE 67; RESP 16; TEMP 98.5
[2016-03-08] MEDS: SERTRALINE HCL 50 MG TAB PO SCH (09:26)
--- NOTE | 2016-03-08 10:04 | HHI.PYPN ---
Subjective Remarks Patient seen in her room with nurse Elenita, chart review, patient continues to isolate the no behavior problems on the unit. When she does come out to eat she is appropriate with the other patient's intertable. Appears her orientation is somewhat improving from admission. Need to consider other alternative diagnoses Review of Systems Except as stated in HPI: all other systems reviewed are Neg Objective Alert: Yes [place]: Person, Place Mood: Calm Affect: Other (fairly full and reactive) Memory Intact: Comment (not assessed) Hallucinations: Other (no AVH) Delusions: No Delusion Type: Other (no delusions) Suicidal: Ideation (no SI) Homicidal: Ideation (no HI) Insight/Judgement Poor Vitals/IOs Vital Signs Date Time Temp Pulse Resp B/P Pulse Ox O2 Delivery O2 Flow Rate FiO2 03/08/16 05:21 98.5 67 16 87/54 03/07/16 18:47 95 Intake and Output 03/07/16 03/07/16 03/07/16 07:59 15:59 23:59 Intake Total 480 ml 1320 ml 240 ml Balance 480 ml 1320 ml 240 ml Assessment & Plan Problem List: (1) [place] disease ICD Code: G10 (2) Dementia ICD Code: F03.90 Assessment & Plan Estimated LOS: days patient somewhat calmer focused no behavioral issues, continues markedly angry at her children for putting her in here Justification for Cont. Inpt. At this time patient decompensated placed on lower level of care Discharge Planning To be determined Request HC Surrog/Guard Advoc?: Yes Problem Qualifiers (1) Dementia: Qualified Code: F02.81 - Dementia associated with other underlying disease with behavioral disturbance Leonel Monroy MD Mar 08, 2016 10:04
[2016-03-08 18:00] VITALS: BP 113/73; PULSE 73; RESP 18; TEMP 98.6; O2SAT 97
[2016-03-08] MEDS: OLANZapine ODT 20 MG TAB PO SCH (20:57)
[2016-03-09 06:02] VITALS: BP 109/62; PULSE 70; RESP 18; TEMP 97.6; O2SAT 97
[2016-03-09] MEDS: SERTRALINE HCL 50 MG TAB PO SCH (09:49)
--- NOTE | 2016-03-09 10:17 | HHI.PYPN ---
Subjective Remarks Patient seen in her room with counselor Barbara, it appears that may be a bed available for her at [facility] the next 1-2 days. Patient's daughter will be looking at this facility. Patient continues show some resistance to any placement except staying here indefinitely if she does not get discharged to hotel or motel. I told the patient that when the beds available [facility] will [facility] has a next step and her becoming more independent. That she needs to show by her behavior that she has the ability to live independently. Patient appeared to be listening and processing that. For now continue treatment no change Review of Systems Except as stated in HPI: all other systems reviewed are Neg Objective Alert: Yes [place]: Person, Place Mood: Calm Affect: Other (fairly full and reactive) Memory Intact: Comment (not assessed) Hallucinations: Other (no AVH) Delusions: No Delusion Type: Other (no delusions) Suicidal: Ideation (no SI) Homicidal: Ideation (no HI) Insight/Judgement Poor Vitals/IOs Vital Signs Date Time Temp Pulse Resp B/P Pulse Ox O2 Delivery O2 Flow Rate FiO2 03/09/16 06:02 97.6 70 18 109/62 97 Intake and Output 03/08/16 03/08/16 03/08/16 07:59 15:59 23:59 Intake Total 1200 ml 720 ml Balance 1200 ml 720 ml Assessment & Plan Problem List: (1) [place] disease ICD Code: G10 (2) Dementia ICD Code: F03.90 Assessment & Plan Estimated LOS: days patient continues angry irritable focused primarily on her children and reluctance to acknowledges the need for an [facility] placement. It appears a placement is available the next few days Justification for Cont. Inpt. At this time patient will decompensate if placed in a lower level of care Discharge Planning To be determined Request HC Surrog/Guard Advoc?: Yes Problem Qualifiers (1) Dementia: Qualified Code: F02.81 - Dementia associated with other underlying disease with behavioral disturbance Leonel Monroy MD Mar 09, 2016 10:17
[2016-03-09] MEDS ORDERED: ZOLO25TA PO (11:39)
[2016-03-09] MEDS ORDERED: OLANZ20 PO (11:39)
--- NOTE | 2016-03-09 11:47 | HHI.DS ---
Psychiatry Discharge Summary Inpatient Psychiatric care?: Yes Advance Directive: Yes Mental Health AdvanceDirective: No Health Care Proxy: No Admission Admission Date Jan 24, 2016 at 10:11 Admission Diagnosis: (1) Major depressive disorder, recurrent, severe with psychotic features ICD Code: F33.3 (2) Dementia ICD Code: F03.90 Brief History The patient is a 60-year-old woman, domicile with her son, unemployed , disabled, without any previous psychiatric history, no previous suicidal attempts, medical history of Eugenie's disease [facility] a Winkler act. Per the report her son who also has Elverson's called police because his mother has been expressing suicidal ideation lately. When they arrived the patient locked the doors and refused to let them in the sun and opened a back door and when they went in she was asking if euthanasia was legal in [place] and if the hospital would give her morphine so she could sleep and "go home to [facility] ". As per ER notes, The patient denies any suicide attempts but states that she has been considering suicide or euthanasia as an option when her disease progresses. Chart was reviewed, case discussed with ER medical staff, no collateral information available, patient was seen and evaluated in the [facility]. On evaluation patient states that she doesn't need to be here, she is states that the reason she was brought to the hospital is because her son doesn't want to pay the rent and wants to get rid of her. Patient denies depressive symptoms, she denies anhedonia, she denies hopelessness, helplessness, she denies suicidal or homicidal ideation. However , she does states that soon or later as per Elverson's disease is deteriorated her health she is going to look for options to end her life in a painless manner, but she is now planning to commit suicide. 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 Patient denies past or current [place], denies anxiety, denies perceptual disturbances, such as visual and auditory hallucinations. Patient is fully oriented 3, no gross cognitive impairment observed. 01/25/16 Above note dictated by Dr. Calderon review noted and agreed with. 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 Calderon to Dr. vera nurse service. Patient chart reviewed and patient seen with nurse eye on unit. Dr. ogden his sign first opinion petition supporting Winkler act. I agree. Patient meets criteria for involuntary psychiatric hospitalization under the Winkler act thus I will cosign second opinion petition supporting Winkler act Tobacco Use In Past 30 Days: 5 or More Cigarettes/Day Alcohol Use: Never Hospital Course Patient's initial hospital course showed marked anger, paranoia, resistance to medication. Much of her anger focused on her children's behaviors leading to the Winkler act and the patient's hospitalization however after counseling and treatment with the patient she became more cooperative compliance with medications. This has led to the patient's showing a marked softening and her paranoia and irritability and increased focus and processing Communication with us. Her anger towards her children remains related to placement. The patient would like to be discharged to either a hotel own apartment is my opinion that that would not be the best placement subsequent to an acute psychiatric hospitalization. The patient's daughter who is her guardian advocate agrees that an ASSISTED placement would be appropriate. [facility] is into the patient and they feel she is appropriate for their facility. This is also agreeable to patient's daughter. Patient showing some continued resistance to this but I did explain to her the need for and the potential for progression to independent living. Patient to be discharged as soon as bed available at [facility] with a Rx 1 month referral to [facility] for further outpatient mental health care Results Blood Pressure 109 / 62 Vital Signs Date Time Temp Pulse Resp B/P Pulse Ox O2 Delivery O2 Flow Rate FiO2 03/09/16 06:02 97.6 70 18 109/62 97 Urine toxicology negative Summary of Procedures None done Pending results at discharge: No Medications # of Antipsychotic meds at D/C: 1 Approp Antipsych med options 1 - Minimum of three failed multiple trials of monotherapy. 2 - Documented plan to taper to monotherapy due to previous use of multiple meds OR cross-taper in progress at D/C. 3 - Documentation of augmentation of Clozapine. 4 - Justification other than those listed in allowable values 1-3, document here : Discharge Discharge Date: Mar 09, 2016 Discharge Diagnosis: (1) Major depressive disorder, recurrent, severe with psychotic features Diagnosis: Principal ICD Code: F33.3 (2) Dementia Diagnosis: Secondary ICD Code: F03.90 (3) Eugenie disease Diagnosis: [place] ICD Code: G10 Mental Status Exam at Disch Alert fairly well oriented white female appearing her stated age laying in her bed, Elverson's movements continue no change. Otherwise patient normal active her affect shows some increased range and intensity mood is euthymic to mildly dysphoric, and no auditory or visual hallucinations no delusions noted insight and judgment is poor cognition appears overall slightly improved from admission Pt Condition on Discharge: Stable Discharge Disposition: [facility] Discharge Instructions Diet Instructions: As Tolerated, No Restrictions Activities you can perform: Regular-No Restrictions Scheduled Appointment: [facility] Discharge Time > 30 minutes Discharge/Advance Care Plan Health Problems: (1) Elverson disease (2) Dementia Goals to promote your health * To prevent worsening of your condition and complications * To maintain your health at the optimal level Directions to meet your goals Take your medications as prescribed Follow your dietary instruction Follow activity as directed Keep your appointments as scheduled Take your immunizations and boosters as scheduled If your symptoms worsen call your PCP, if no PCP go to Urgent Care Center or Emergency Room For 25/09 questions related to your inpatient stay or results of tests pending at discharge, please contact Dr. Leonel Monroy at Smoking is Dangerous to Your Health. Avoid second hand smoking Problem Qualifiers (1) Dementia: Qualified Code: F02.81 - Dementia associated with other underlying disease with behavioral disturbance Leonel Monroy MD Mar 09, 2016 11:47
[2016-03-09 18:40] VITALS: BP 98/56; PULSE 87; RESP 18; TEMP 99.3; O2SAT 96
[2016-03-09] MEDS: OLANZapine ODT 20 MG TAB PO SCH (20:51)
[2016-03-10 05:16] VITALS: BP 102/60; PULSE 70; RESP 16; TEMP 97.8; O2SAT 96
[2016-03-10] MEDS: SERTRALINE HCL 50 MG TAB PO SCH (09:20)
--- NOTE | 2016-03-10 11:00 | HHI.PYPN ---
Subjective Remarks Patient seen in room today. Discussed in further detail her discharge today to local [facility], [place], and how they could benefit her in her further recovery/ rehabilitation. Patient initially showed resistance to leaving here stating "I am not Benadryl I'm going to stay here" however after discussion and setting limits with this lady she agreed to it realizing that it is an open unit and she will have free ingress and egress. Patient stated she is willing to go today Rx's have been written, with follow-up through [facility] Review of Systems Except as stated in HPI: all other systems reviewed are Neg Objective Alert: Yes [place]: Person, Place, Date Mood: Calm Affect: Other (fairly full and reactive) Memory Intact: Comment (fair) Hallucinations: Other (denies) Delusions: No Delusion Type: Other (no delusions) Suicidal: Ideation (no SI) Homicidal: Ideation (no HI) Insight/Judgement Poor to fair Vitals/IOs Vital Signs Date Time Temp Pulse Resp B/P Pulse Ox O2 Delivery O2 Flow Rate FiO2 03/10/16 05:16 97.8 70 16 102/60 96 Intake and Output 03/09/16 03/09/16 03/10/16 08:00 16:00 00:00 Intake Total 1800 ml 0 ml Balance 1800 ml 0 ml Assessment & Plan Problem List: (1) [place] disease ICD Code: G10 (2) Dementia ICD Code: F03.90 Assessment & Plan Estimated LOS: days there is no other available patient to be discharged to [facility] today Rx 1 month to follow through [facility] Justification for Cont. Inpt. Patient to be discharged today to [facility] Discharge Planning Patient to be discharged today to [facility] Request HC Surrog/Guard Advoc?: Yes Problem Qualifiers (1) Dementia: Qualified Code: F02.81 - Dementia associated with other underlying disease with behavioral disturbance Leonel Monroy MD Mar 10, 2016 11:00
== END 2016-03-10 15:35 | DRG 885 ==
LOC: NEPE 12:22 → NEDA 01-24 10:11 → H260 01-24 11:35 → H270 01-27 11:50 → H250 01-28 13:02
PROVIDERS: ADMIT Psychiatry & Neurology Psychiatry; ATTEND Psychiatry & Neurology Psychiatry
DX: F33.3 Major depressive disorder, recurrent, severe with psychotic symptoms (principal); F03.90 Unspecified dementia, unspecified severity, without behavioral disturbance, psychotic disturbance, mood disturbance, and anxiety; G10 Huntington's disease; R45.851 Suicidal ideations; N39.0 Urinary tract infection, site not specified; F17.200 Nicotine dependence, unspecified, uncomplicated; B96.20 Unspecified Escherichia coli [E. coli] as the cause of diseases classified elsewhere; Z91.14 Patient's other noncompliance with medication regimen
CPT/HCPCS: 80048; 80053; 80061; 80301; 80320; 80329; 81001; 83036; 85025; 87077; 87086; 87186; 99284; G0479; J2060

== ENCOUNTER 2017-06-11 12:32 | Emergency (ER) | payer OTHER ==
[~2017-06-11] VITALS: Ht 162.6 cm; Wt 44.5 kg
[~2017-06-11 12:32] MED LIST: MACR100C2 PO; OLANZ20 PO; ZOLO25TA PO
[2017-06-11 13:27] VITALS: BP 121/82; PULSE 98; RESP 18; TEMP 99.6; O2SAT 98
--- NOTE | 2017-06-11 14:49 | RADRPT ---
EXAM DATE/TIME: 06/11/2017 14:09 [facility] COMPARISON: No previous studies available for comparison. INDICATIONS : Right wrist pain, fall. MEDICAL HISTORY : None. SURGICAL HISTORY : None. ENCOUNTER: Initial ACUITY: 1 day PAIN SCORE: 6/10 LOCATION: Right medial wrist FINDINGS: Acute displaced and angulated fractures involving the right distal radius and ulna are noted. CONCLUSION: Acute displaced and angulated fractures involving right distal radius and ulna. Tye Bhakta MD on June 11, 2017 at 14:42 Board Certified Radiologist. This report was verified electronically.
--- NOTE | 2017-06-11 15:50 | RADRPT ---
EXAM DATE/TIME: 06/11/2017 14:15 [facility] COMPARISON: No previous studies available for comparison. INDICATIONS : Shortness of breath. MEDICAL HISTORY : Huntingtons disease SURGICAL HISTORY : None. ENCOUNTER: Initial ACUITY: 1 day PAIN SCORE: 0/10 LOCATION: Bilateral chest FINDINGS: A single view of the chest demonstrates the lungs to be symmetrically aerated without evidence of mas s, infiltrate or effusion. The cardiomediastinal contours are unremarkable. Osseous structures are intact. CONCLUSION: No acute cardiopulmonary disease. Dinh Diaz MD on June 11, 2017 at 14:45 Board Certified Radiologist. This report was verified electronically.
[2017-06-11 16:07] VITALS: BP 124/80; PULSE 82; RESP 18; O2SAT 98
--- NOTE | 2017-06-11 16:31 | PD ---
HPI Chief Complaint: Injury Time Seen by Provider: 16:15 Travel History International Travel<30 days: No Contact w/Intl Traveler<30days: No Traveled to known affect area: No History of Present Illness HPI Patient slipped coming out of the shower at approximately 11:00 this morning. States that she did not hit her head no LOC but she did break the fall with her right arm. Patient is left-handed, and she is complaining of right wrist pain with obvious right wrist deformity. She was ambulatory after the fall. Patient currently reports pain numbness and tingling in the right wrist. [facility] Past Medical History Narrative Medical [place]'s disease Arthritis: No Seizures: No Influenza Vaccination: Yes Past Surgical History Abdominal Surgery: No Cardiac Surgery: No Section: Yes Ear Surgery: No Endocrine Surgery: No Eye Surgery: No Genitourinary Surgery: No Gynecologic Surgery: No Oral Surgery: No Thoracic Surgery: No Social History Alcohol Use: No Tobacco Use: Yes Substance Use: No Allergies-Medications (Allergen,Severity, Reaction): Coded Allergies: No Known Allergies (Unverified , 01/23/16) Reported Meds & Prescriptions Reported Meds & Active Scripts Active Zoloft (Sertraline HCl) 25 Mg Tab 25 Mg PO DAILY Zyprexa Zydis (Olanzapine) 20 Mg Tab 20 Mg PO HS Review of Systems Except as stated in HPI: all other systems reviewed are Neg Physical Exam Narrative GENERAL: No acute distress SKIN: Focused skin assessment warm/dry. HEAD: Atraumatic. Normocephalic. EYES: Extraocular muscles intact bilaterally ENT: No nasal bleeding or discharge. Poor dentition NECK: Supple full range of motion CARDIOVASCULAR: Regular rate and rhythm. No murmur appreciated. RESPIRATORY: No accessory muscle use. Clear to auscultation. Breath sounds equal bilaterally. GASTROINTESTINAL: Abdomen soft, non-tender, nondistended. Hepatic and splenic margins not palpable. MUSCULOSKELETAL: Obvious left wrist deformity. Cap refill less than 3 seconds. Sensation intact. Unable to assess median ulnar radial radial nerves secondary to pain NEUROLOGICAL: Awake and alert. PSYCHIATRIC: Appropriate mood and affect; insight and judgment normal. Data Data Last Documented VS Vital Signs Date Time Temp Pulse Resp B/P (MAP) Pulse Ox O2 Delivery O2 Flow Rate FiO2 06/11/17 16:07 82 18 124/80 (95) 98 Room Air 06/11/17 13:27 99.6 Orders Orders Complete Blood Count With Diff (06/11/17 13:29) Basic Metabolic Panel (Bmp) (06/11/17 13:29) Act Partial Throm Time (Ptt) (06/11/17 13:29) Prothrombin Time / Inr (Pt) (06/11/17 13:29) Wrist, Complete ([id number]) (06/11/17 ) Chest, Single Ap (06/11/17 ) Sling Cradle Arm (06/11/17 ) Lidocaine 1% Inj (Xylocaine 1% Inj) (06/11/17 17:00) Sling Cradle Arm (06/11/17 ) Wrist, Limited (Ap&Lat) (06/11/17 ) Acetaminophen (Tylenol) (06/11/17 17:30) Fiberglass Sugartong Sp Ad Arm (06/11/17 ) Sling Cradle Arm (06/11/17 ) Labs Laboratory Tests Test 06/11/17 16:35 White Blood Count 11.4 TH/MM3 Red Blood Count 4.63 MIL/MM3 Hemoglobin 14.4 GM/DL Hematocrit 43.3 % Mean Corpuscular Volume 93.5 FL Mean Corpuscular Hemoglobin 31.0 PG Mean Corpuscular Hemoglobin Concent 33.2 % Red Cell Distribution Width 15.0 % Platelet Count 437 TH/MM3 Mean Platelet Volume 7.3 FL Neutrophils (%) (Auto) 69.2 % Lymphocytes (%) (Auto) 23.7 % Monocytes (%) (Auto) 5.6 % Eosinophils (%) (Auto) 0.7 % Basophils (%) (Auto) 0.8 % Neutrophils # (Auto) 7.9 TH/MM3 Lymphocytes # (Auto) 2.7 TH/MM3 Monocytes # (Auto) 0.6 TH/MM3 Eosinophils # (Auto) 0.1 TH/MM3 Basophils # (Auto) 0.1 TH/MM3 CBC Comment DIFF FINAL Differential Comment Prothrombin Time 10.1 SEC Prothromb Time International Ratio 1.0 RATIO Activated Partial Thromboplast Time 24.8 SEC Blood Urea Nitrogen 12 MG/DL Creatinine 0.81 MG/DL Random Glucose 101 MG/DL Calcium Level 8.9 MG/DL Sodium Level 140 MEQ/L Potassium Level 4.2 MEQ/L Chloride Level 108 MEQ/L Carbon Dioxide Level 27.2 MEQ/L Anion Gap 5 MEQ/L Estimat Glomerular Filtration Rate 72 ML/MIN MDM Medical Decision Making Medical Screen Exam Complete: Yes Emergency Medical Condition: Yes Interpretation(s) Last Impressions Last Impressions Wrist X-Ray 06/11/17 0000 Signed Impressions: Service Date/Time: Sunday, June 11, 2017 14:09 - CONCLUSION: Acute displaced and angulated fractures involving right distal radius and ulna. Tye Bhakta MD Chest X-Ray 06/11/17 0000 Signed Impressions: Service Date/Time: Sunday, June 11, 2017 14:15 - CONCLUSION: No acute cardiopulmonary disease. Dinh Diaz MD Differential Diagnosis Fracture, dislocation Narrative Course Patient presents to ER with R wrist deformity. XRays ordered in triage which showed fracture and dislocation of wrist. Labs were also sent from triage which showed slight increase in wbc count. Called Ortho education adviser and spoke to PA, who advised to attempt reduction and place in sugar tong and have patient followup. Patient was consented for hematoma block and reduction. See procedure note. Patient given tylenol po for pain after reduction. Post reduction XR done. Procedures Procedure Narrative Area prepped with chloroprep and hematoma block done. Approximately 5cc of 1% lidocaine without epi injected into hematoma after blood aspirated. Patient reported area being numb, and reduction was then attempted. Patient was placed in sugar tong splint. She was neurovascularly intact after the reduction. Post reduction XR: FINDINGS: AP and lateral views following reduction and casting of right distal radial and ulnar impacted fractures. There is improved impaction as well as ulnar deviation of both distal fragments with persistent palmar angulation particularly of the radius. No additional acute fractures are identified. CONCLUSION: 1. Status post reduction and casting of distal radial and ulnar fractures, as above. EKG Prior to Arrival: No Physician Communication Physician Communication Spoke to Dr. Cabrera's PA, who advised to attempt reduction, place in sugar tong splint, and have patient followup. After reduction done, he stated to have patient f/u either Sunday, , or Sunday. Diagnosis Primary Impression: Wrist fracture, closed Qualified Codes: S62.101A - Fracture of unspecified carpal bone, right wrist, initial encounter for closed fracture Referrals: Juan Cabrera MD Patient Instructions: General Instructions Additional Instructions: Pain meds as needed. Followup with Orthopedics, Dr. Cabrera, on either Sunday , , or next Sunday. Return to ER immediately for increase pain or swelling in R arm, color changes, loss of sensation, or for any new/worrisome/ worsening symptoms. Disposition: 01 DISCHARGE HOME Condition: Juhi Nelson MD Jun 11, 2017 16:31
[2017-06-11] MEDS ORDERED: LIDOCAINE HCL 1% 20 ML VIAL INFIL ONE (17:00)
[2017-06-11 17:07] LABS: AUTOMATED NEUTROPHIL # 7.9 TH/MM3 (1.8-7.7); BASOPHIL # 0.1 TH/MM3 (0-0.2); BASOPHIL % 0.8 % (0.0-2.0); EOSINOPHIL # 0.1 TH/MM3 (0-0.4); EOSINOPHIL % 0.7 % (0.0-4.0); HEMATOCRIT 43.3 % (35.0-46.0); HEMOGLOBIN 14.4 GM/DL (11.6-15.3); LYMPH % 23.7 % (9.0-44.0); LYMPHOCYTE # 2.7 TH/MM3 (1.0-4.8); MEAN CELL VOLUME 93.5 FL (80.0-100.0); MEAN CORPUSCULAR HGB CONC 33.2 % (32.0-36.0); MEAN PLATELET VOLUME 7.3 FL (7.0-11.0); MONO % 5.6 % (0.0-8.0); MONOCYTE # 0.6 TH/MM3 (0-0.9); NEUT % 69.2 % (16.0-70.0); PLATELET COUNT 437 TH/MM3 (150-450); RED BLOOD COUNT 4.63 MIL/MM3 (4.00-5.30); WHITE BLOOD COUNT 11.4 TH/MM3 (4.0-11.0)
[2017-06-11 17:12] LABS: PROTHROMBIN TIME - PATIENT 10.1 SEC (9.8-11.6)
[2017-06-11] MEDS ORDERED: ACETAMINOPHEN 325 MG TAB PO ONE (17:30)
[2017-06-11 17:37] LABS: BICARBONATE 27.2 MEQ/L (21.0-32.0); CALCIUM 8.9 MG/DL (8.5-10.1); CREATININE 0.81 MG/DL (0.50-1.00)
--- NOTE | 2017-06-11 17:47 | RADRPT ---
EXAM DATE/TIME: 06/11/2017 17:33 [facility] COMPARISON: WRIST RIGHT COMPLETE ([id number]), June 11, 2017, 14:09. INDICATIONS : Post reduction. MEDICAL HISTORY : None. SURGICAL HISTORY : None. ENCOUNTER: Subsequent ACUITY: 1 day PAIN SCORE: 5/10 LOCATION: Right wrist. FINDINGS: AP and lateral views following reduction and casting of right distal radial and ulnar impacted fractu res. There is improved impaction as well as ulnar deviation of both distal fragments with persistent palmar angulation particularly of the radius. No additional acute fractures are identified. CONCLUSION: 1. Status post reduction and casting of distal radial and ulnar fractures, as above. Omar Davenport MD on June 11, 2017 at 17:43 Board Certified Radiologist. This report was verified electronically.
== END 2017-06-11 18:22 | disposition home or self-care (01) ==
LOC: NEPD 12:32
DX: S52.501A Unspecified fracture of the lower end of right radius, initial encounter for closed fracture (principal); S52.601A Unspecified fracture of lower end of right ulna, initial encounter for closed fracture; W01.0XXA Fall on same level from slipping, tripping and stumbling without subsequent striking against object, initial encounter
CPT/HCPCS: 25605; 71045; 73100; 73110; 80048; 85025; 85610; 85730